=== PATIENT | female | born 1950 | race Caucasian/White ===

== ENCOUNTER 2019-03-08 12:22 | Day surgery (SDC) | payer MEDICARE, SELFPAY ==
--- NOTE | 2019-03-07 19:43 | HP.PCM_ITS ---
History and Physical Date of Admission: 03/08/19 Ana Hope 1950 ? ? REFERRING PHYSICIAN: Sera Jolley (Cracking Unit Operator) ? CHIEF COMPLAINT: New findings of right breast DCIS ? HPI: The patient is a 68 year old female presents with abnormal right breast ultrasound and mammograms. Denies palpable breast masses. Denies nipple discharge. Denies previous breast biopsies. Denies breast pain. Mother had breast cancer in her '80s, no ovarian cancer known in family. US 02/10/19 There is 0.6 cm x 0.4 cm x 0.4 cm oval mass with a circumscribed margin in the right breast at 10 o'clock anterior depth 2 cm from the nipple. ?Anterior depth. It is suspicious for malignancy. An ultrasound guided biopsy is recommended. US needle core breast biopsy 02/12/19 - Pathology - Right breast, biopsy - Ductal carcinoma in situ, low grade, solid and cribriform types ? ? PAST MEDICAL HISTORY ? Arthritis ? ? Christopher's cyst of knee 02/2012? left, behind ? Diabetes (HCC) ? ? Frozen shoulder syndrome ? ? Obesity, unspecified ? ? Pelvic kidney ? right ? Prolapse of female pelvic organs ? ? Unspecified sleep apnea ? ? Vitreous detachment of both eyes ? ? PAST SURGICAL HISTORY ? DELIVERY ONLY ? ? ? PAST SURGICAL HISTORY OF ? hernia surgery ? REMOVE TONSILS/ADENOIDS,<14 Y/O ? ? ? VAGINAL HYSTERECTOMY ? 2014? [facility], RSO, uterosacral VVS, rectocele repair ? W $ FINGER JOINT IMP ? 08/15/11? scraping of bone on left 5th digit ? ? Current Outpatient Medications: metFORMIN ER (GLUCOPHAGE XR) 500 mg 24 hr tablet Take 500 mg by mouth once daily. ? ? ALLERGIES: Dog And Cat Hair [Other]; Dust; Seasonal Allergies ? 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 FAMILY HISTORY ? Breast Cancer Mother ?? HTN ? No Ocular Disease No Family History ? ? ? REVIEW OF SYSTEMS: General: The patient denies fatigue, denies weight loss, denies weight gain, denies feeling hot, and denies feelings of cold. Eyes: The patient denies glaucoma, denies eye injury/surgery, wears glasses or contacts. Ear/Nose/Throat: The patient notes allergies, denies hayfever, denies ear infections, and denies bloody noses. Cardiovascular: The patient denies chest pain, denies heart disease, denies high blood pressure,denies cardiac stent, denies prior heart attack, de nies irregular heart beat, denies high cholesterol, denies poor circulation, denies heart failure, other cardiac issues, denies claudication, denies cold feet, denies peripheral arterial stent. Respiratory: The patient denies tuberculosis, denies pneumonia, denies frequent cough, denies pulmonary embolism, denies shortness of breath, and denies coughing up blood. Gastrointestinal: The patient denies difficulty swallowing, denies acid reflux, denies ulcers, denies vomiting, denies jaundice/hepatitis, denies gallbladder problems, denies black or tarry stools, denies hemorrhoids, denies bleeding from rectum, denies diverticulitis, denies constipation, denies diarrhea, denies loss of stool control, and denies hernias. Kidney/Bladder: The patient denies kidney stones, denies urine infections, and denies bloody urine. Skin: The patient denies a history of skin cancer, denies bleeding/changing moles, and denies a history of skin rash. Neurologic: has tinnitis, denies a history of epilepsy/convulsions, denies headaches, denies head/spinal injuries, and denies stroke/TIA. Psychiatric: The patient denies psychiatric medications, denies depression, and denies voices, denies substance abuse. Endocrine: The patient denies thyroid disorders, notes diabetes, and denies hormonal problems. Hematologic: The patient denies a history of bruising, denies bleeding, and denies anemia, denies blood clots. Infections: The patient denies a history of measles and mumps, denies rheumatic fever, and denies sexually transmitted diseases. Musculoskeletal: has joint pain - arthritis of hands, has knee pain, has Christopher's cyst of left knee, denies back problems, denies sciatica, denies gout. Obstetrical: menarche onset at age 14, , first at age 33, breast feeding about 3 year, BCP use for < 1 y, last menstrual period 05/03/2010, ? PHYSICAL EXAMINATION: General: The patient is 68 year old female, well nourished, well hydrated in no acute distress. The patient is oriented to time, place, and person. VITALS: Blood pressure 136/62, pulse 70, resp. rate 18, weight 94.8 kg (209 lb), SpO2 97 %. Body mass index is 32.25 kg/m?. Head ? Normocephalic. EOM intact with sclera clear and no icterus noted. Mouth with mucus membranes moist. Neck - supple with no jugular venous distention noted. Trachea is midline. No carotid bruits noted. No thyroid enlargement or thyroid nodules detected. No masses noted. Chest/breast ?healing biopsy site of right breast - ecchymoses present Lungs ? clear to auscultation. Normal breath sounds. No rales/rhonchi/wheezing noted. No labored breathing noted, such as retractions. No cough heard. Heart ? normal S1 and S2 auscultated. No rubs/clicks/murmurs noted. Regular rate. Abdomen ? soft and benign. Normal bowel sounds. No abdominal bruits noted. No distention noted. Extremities ? no calf tenderness noted. No pitting edema noted. Skin ? normal skin integrity. Lymph ? no cervical adenopathy detected, no supraclavicular adenopathy detected, no axillary adenopathy detected Neurological ? gait normal, no focal deficits noted. Psych ? calm and appropriate RADIOLOGIC STUDIES: As Noted ? ? IMPRESSION: right breast DCIS ? PLAN: I have discussed the above with the patient. I have discussed options of surgical treatment - mastectomy versus breast lumpectomy followed by radiation therapy. I have described both procedures. The patient prefers lumpectomy. I have explained that this will require wire localization. I have counseled the patient as to the risks of the procedure, including but not limited to: infection, bleeding, injury to any blood vessels/nerves, scar tissue, missing the lesion, reexcision for positive margins, wound infections, complications of anesthesia, etc. ? the patient understands. The patient wishes to proceed. I have answered all questions to the patient?s satisfaction and the patient has no further questions. .
--- NOTE | 2019-03-08 | BREAST_PTH ---
PATIENT: OMAR EVANS [place] [facility] [place][id number] AGE/SX: 68/F ROOM: RE03/08/[address]: Dr. Marbella Fox MD : 1950 BED: DIS: 03/08/2019 SPEC #: [id number] RECD: 03/08/19 16:05 STATUS: JOE REElise #: [id number] KHARI: 03/08/19 00:[address]: Marbella Fox DEPT: SURGICAL PATHOLOGY RECD BY: Chanda Torres ENTERED: 03/09/19 07:36 SP TYPE: BREAST OTHR DR: Dr. Mathew Tuttle MD Tissues: A - Right breast, NOS B - Right breast, NOS Procedures: Surgery Specimen Level IV Surgery Specimen Level V HEADER OPERATION: Right breast lumpectomy via wire localization PRE-OP DIAGNOSIS: Ductal carcinoma in situ TISSUE SUBMITTED: A - Right breast tissue, two short sutures - posterior margin, one short suture - superior, one long suture - lateral, B - Additional right breast tissue MICROSCOPIC DIAGNOSIS A. Right breast, lumpectomy via wire needle localization: Ductal carcinoma in situ. Intraductal hyperplasia with focal atypia. Intraductal papillomatosis with atypia. Fibrocystic changes. See cancer summary below. B. Additional right breast tissue: Intraductal papilloma with focal atypia. SJ:marty 03/10/19 DUCTAL CARCINOMA IN SITU SUMMARY: Specimen - partial breast Procedure - excision with wire-guided localization. Lymph node sampling - no lymph node present. Specimen integrity - multiple designated specimens, main excision and additional breast tissue. Specimen size: lumpectomy specimen - 9 x 4 x 2 cm and additional breast tissue - 2.5 x 1.5 x 0.6 cm Tumor site - not specified Size (extent) of DCIS - 0.5 x 0.3 cm Number of blocks with DCIS - 2 Number of blocks examined - 20 (lumpectomy specimen and additional breast tissue) Histologic type - ductal carcinoma in situ Architectural patterns - cribriform and solid Nuclear grade - Grade 1 (low) Necrosis - present, focal Margins: Margins uninvolved by DCIS. The tumor is 0.5 cm away from the anterior and superior margins. Treatment effect: Response to presurgical (neoadjuvant) - not applicable. No known presurgical therapy. Lymph nodes: not present Additional Pathologic Findings - fibrocystic changes and intraductal hyperplasia with focal atypia. - Intraductal papillomatosis with atypia. - fibrocystic changes. Ancillary Studies from previous specimen ([id number] from [facility]): ER - 99%, strong [place] - see comment. Her2 haydee ([facility]) - see comment. Clinical history - Please make reference to previous specimen ([id number] from [facility]) with diagnosis of ductal carcinoma in situ, low grade, solid and cribriform types). Pathologic Staging: pTis(DCIS) pNx Mx The above summary is in compliance with College of [place] Path[employer] (CAP) Cancer Protocols Checklist and [place] Joint Committee on Cancer (AJCC), Staging Manual, 8th Ed. COMMENT A. If additional hormonal studies needed in this specimen ([place] & Her2-haydee), please notify the laboratory. Case has been reviewed in consultation with Dr. Benites who concurs with the above diagnosis. IDC:AM MICROSCOPIC DESCRIPTION Slides are reviewed. GROSS DESCRIPTION A - Received fresh for intraoperative consultation labeled with the patient's name is a specimen designated right breast tissue. The specimen consists of a piece of fibroadipose tissue with needle localization measuring 9 x 4 x 2 cm. The specimen is oriented as follows: two short sutures - posterior margin, one short suture - superior margin, one long suture - lateral margin. The specimen is inked as follows: anterior - yellow, posterior - black, superior - blue, inferior - green, medial - red and lateral - orange. Serial sections reveal a small biopsy cavity. No mass lesion is identified. This biopsy cavity is close to the posterior margin. Sections of the rest of the specimen reveal norwood-yellow adipose cut surfaces mixed with norwood-white fibrous area. The information of the biopsy cavity of no mass lesion is conveyed to the surgeon intraoperative. The specimen is serially sectioned and submitted entirely from medial to lateral margin in 18 cassettes. B - Received in fixative is one container labeled with the patient's name and designated additional right breast tissue. The specimen consists of a piece of norwood-yellow fibroadipose tissue measuring 2.5 x 1.5 x 0.6 cm. The specimen is submitted entirely in two cassettes. / TO:marty 03/09/19 TC:0 CPT: 99506, 44051, 05935
--- NOTE | 2019-03-08 12:30 | BI_ITS ---
SURGICAL BREAST SPECIMEN RADIOGRAPH CLINICAL: Document presence of calcifications in biopsy specimen. FINDINGS: Specimen shows presence of calcifications. Electronically Signed: Eliseo Ballesteros, at 7:56 EDT , Service support , BI/Breast Biopsy Specimen
[2019-03-08 13:04] VITALS: BP 122/73; PULSE 82; RESP 16; TEMP 36.9; O2SAT 97; BMI 34.2
[2019-03-08 13:20] LABS: Bedside Glucose 128 mg/dL (70-110)
--- NOTE | 2019-03-08 14:58 | DCINST_ITS ---
Discharge Diet: No Restrictions Discharge Activity: Return to Normal Activity, May not drive while taking narcotic pain medications. Call your doctor if your incision/area has: Continuous Slow Oozing, Foul Smelling Discharge Call your doctor if you observe: Fever of 101 or Higher Additional Dressing/Incision Instructions:: Leave dressings in place. May get wet in shower. Do not soak - no tub baths/swimming. Wear supportive bra during the day Allergies/Adverse Reactions: Allergies No Known Allergies Allergy (Verified 03/08/19 13:03) Medications to take at Discharge Metformin HCl [Glucophage] 500 mg PO BID 03/02/19 Hydrocodone Bitart/Apap 5-325 [Radisson 5MG-325MG] 1 tab PO Q8H PRN PRN 5 Days #15 tab 03/08/19 The following prescriptions were given: Hydrocodone Bitart/Apap 5-325 [Radisson 5MG-325MG] 1 tab PO Q8H PRN PRN 5 Days #15 tab PRN Reason: Pain Prescription Printed Primary Care Physician: Mathew Tuttle MD [Primary Care Provider] - Please Follow Up With: Marbella Fox MD - call When: to be seen in 7-10 days, please call for date and time, thank you
[2019-03-08] MEDS: Cefazolin 2 GM in 0.9% Normal Saline 100 ML IV (14:59)
--- NOTE | 2019-03-08 15:02 | OP.PCM_ITS ---
Report of Operation Date of Procedure: 03/08/19 Pre-Operative Diagnosis: right breast ductal carcinoma in situ Post-Operative Diagnosis: same Surgery/Procedure Performed:: right breast lumpectomy via wire localization Description of Surgical Findings:: right breast lumpectomy Type of Anesthesia:: General Anesthesiologist: Lyndsey Benitez Specimen's removed: right breast tissue Estimated Blood Loss (mL): < 10 ml Fluids Replaced: 1000 ml RL Description of Procedure: After informed consent was given, the patient was brought into the Breast Stereotactic Radiology suite. Appropriate time out protocol was followed. She was then placed in the prone position on the [place] stereotactic table. The patient?s right breast was placed in the opening at the head of the table. A special education inclusion teacher compression mammogram was then obtained in the lateral view. The marker clip that was previously placed was identified. Stereo pictures of the lesion were then taken for XYZ coordinates. The Kopans needle was then positioned where it would be entering into the patient?s breast. The skin at this site was then cleansed with a surgical skin preparation. The skin and subcutaneous tissues at this site were then infiltrated with 1% xylocaine. The Kopans needle was then positioned into the patient?s breast at the proper coordinates of depth. A special education inclusion teacher film was obtained which revealed the wire in proper position. The patient was then placed in the supine position and the wire was taped into place. A unilateral mammogram in the CC and MLO view were then taken for use in the OR. The patient tolerated this portion of the procedure well and was brought to the AC awaiting surgery in the OR. The patient was then brought to the Operating Room. Appropriate time out protocol was followed. She was then placed on the operating table in the supine position. A wire had already been placed in the stereotactic biopsy room in the radiology department as described above. The right breast with the wire in placed was then prepped with a sterile surgical skin preparation and sterile surgical drapes were placed. The skin and subcutaneous tissues at the site of the breast lesion was then infiltrated with 1% xylocaine with epinephrine. A lateral transverse skin incision was made and then extended at the areolar border in the lower outer quadrant with a 15 blade scalpel and carried down through to the subcutaneous tissues. Hemostasis was controlled with electrocautery. The wire was then palpated out and brought into the wound from outside. The breast tissue surrounding the wire was then carefully palpated out and from the surrounding tissues using electrocautery. The breast tissue, once from the breast, was then forwarded to the radiology department, where a specimen mammogram revealed that the marker was not noted in the specimen. The breast tissue was then forwarded to pathology for analysis. Pathology did show a biopsy cavity, no mass noted. It also revealed that the closest margin was posterior. Additional posterior tissue was obtained. Attempt to localize the marker clip with an xray was obtained. No marker clip was identified. The wound cavity was carefully examined. No further suspicious tissue was palpated or visualized. Hemostasis was carefully controlled with electrocautery. The subdermal tissues were then approximated with vicryl suture. The incision was then reapproximated close using running monocryl suture. Cavilon and steristrips were then placed to reinforce the skin closure. A sterile dressing was then applied. The patient was then brought to the Recovery Room in stable condition. - Complications none noted - Admit VTE Documentation VTE Present on Admission: Yes VTE Mechan Device Prophylaxis: SCD's
--- NOTE | 2019-03-08 16:10 | RAD_ITS ---
STUDY: X-RAY CHEST REASON FOR EXAM: Female, 68 years old. mammography clip TECHNIQUE: Single spot view of the right chest COMPARISON: None. FINDINGS: There are retractors and surgical hemostats overlying the right side chest. The breast tissue is to the lateral aspect of the chest. A metallic clip is not visualized. RAD/Chest 1 View (Portable) IMPRESSION: Metallic clip is not visualized. The location of the clip is known, could consider intraoperative ultrasound Electronically Signed: Winsome Treadwell MD at 17:35 EDT Tel , Service support ,
[2019-03-08] MEDS: Bupiv/Epi 0.25% 30 ML Vial (16:27)
[2019-03-08 16:48] VITALS: BP 122/73; BP 143/84; PULSE 88; RESP 16; TEMP 36.7; O2SAT 93
[2019-03-08 17:00] VITALS: BP 122/73; BP 135/73; PULSE 88; RESP 16; O2SAT 93
[2019-03-08 17:11] LABS: Bedside Glucose 120 mg/dL (70-110)
[2019-03-08 17:15] VITALS: BP 122/73; BP 134/65; PULSE 71; RESP 16; O2SAT 97
[2019-03-08 17:33] VITALS: BP 122/73; BP 132/79; PULSE 72; RESP 16; TEMP 36.3; O2SAT 93
[2019-03-08 17:58] VITALS: BP 122/73; BP 135/79; PULSE 77; RESP 16; TEMP 36.4; O2SAT 94
== END 2019-03-08 18:00 | disposition home or self-care (01) ==
LOC: SDC 12:25 → AC 12:31
PROVIDERS: Family Provider Family Medicine; PCP Family Medicine; Referring Provider Surgery; Visit Provider Surgery
PROC: (CPT 19301; principal; 2019-03-08 15:00)
DX: D05.11 Intraductal carcinoma in situ of right breast (principal); E11.9 Type 2 diabetes mellitus without complications; M19.042 Primary osteoarthritis, left hand; M19.041 Primary osteoarthritis, right hand; G47.30 Sleep apnea, unspecified; E66.9 Obesity, unspecified; Z68.32 Body mass index [BMI] 32.0-32.9, adult; Z79.84 Long term (current) use of oral hypoglycemic drugs; Z78.0 Asymptomatic menopausal state; Z80.3 Family history of malignant neoplasm of breast
CPT/HCPCS: 19301; 19281; 71045; 76098; 82962; 88305; 88307; J7050; J7120; J2405

== ENCOUNTER 2020-04-13 09:00 | Outpatient (RCR) | payer MEDICARE, SELFPAY | END 2020-04-24 23:59 | LOC: DC 09:00 | PROVIDERS: PCP Family Medicine; Visit Provider Family Medicine | DX: Z71.3 Dietary counseling and surveillance (principal); E11.9 Type 2 diabetes mellitus without complications | CPT/HCPCS: 97802; G0108 ==

== ENCOUNTER 2020-04-27 09:34 | Outpatient (RCR) | payer MEDICARE, SELFPAY | END 2020-04-27 16:55 | disposition home or self-care (01) | LOC: DC 09:34 | PROVIDERS: PCP Family Medicine; Visit Provider Family Medicine | DX: Z71.3 Dietary counseling and surveillance (principal); E11.9 Type 2 diabetes mellitus without complications | CPT/HCPCS: 97803 ==

== ENCOUNTER → 2020-05-15 17:47 | Outpatient (CLI) | payer MEDICARE, SELFPAY | PROVIDERS: PCP Family Medicine; Referring Provider Dermatology; Visit Provider Dermatology | DX: L02.511 Cutaneous abscess of right hand (principal); L02.416 Cutaneous abscess of left lower limb; L02.211 Cutaneous abscess of abdominal wall; L57.0 Actinic keratosis | CPT/HCPCS: 87070; 87077; 87186; 87205 ==

== ENCOUNTER 2020-08-23 21:39 | Emergency (ER) | payer MEDICARE, SELFPAY ==
[2020-08-23 21:39] VITALS: BP 149/73; PULSE 96; RESP 16; TEMP 35.8; O2SAT 96; BMI 31.5
--- NOTE | 2020-08-23 21:48 | ED.VIS.GEN ---
History of Present Illness Chief Complaint: Lower Extremity Injury Detail of Chief Complaint: Atraumatic left calf pain and swelling Informant: Patient Onset: Days - 3 to 4 days ago Context: Sudden Onset Timing: Continuous Quality: Pain and redness Location: Left calf Current Severity: Mild Maximum Severity: Moderate Worsened by: Ambulating and pressure Relieved by: Nothing Associated Symptoms: No associated symptoms - Past Medical History (1) History of type 2 diabetes mellitus Status: Acute Past Medical History - Allergies and Home Meds Allergies/Adverse Reactions: Allergies No Known Allergies Allergy (Verified 08/23/20 21:39) Primary Care Physician: Mathew Tuttle MD [Primary Care Provider] - Prior records reviewed: Yes - Diabetes Surgical History: noncontributory - Biopsy left breast 2019 Lives: With Family Smoking Status: Never smoker Alcohol: None Drugs: None Review of Systems General: Denies: Chills, Fever, Malaise, Subjective Cardiovascular: Denies: Chest pain - She denies pleuritic pain or any type of pain., Palpitations, Heart racing Respiratory: Reports: Cough - Cough started July 27., Sputum. Denies: Dyspnea, Dyspnea on exertion, Orthopnea, Paroxysmal nocturnal dyspnea Gastrointestinal: Denies: Abdominal pain, Nausea, Vomiting Musculoskeletal: Reports: Swelling, Extremity Pain. Denies: Myalgias, Arthralgias Skin: Reports: Rash. Denies: Wounds Neurological: Denies: Weakness, Parasthesia Endocrine: Denies: Polyuria, Polydipsia Hematologic: Denies: Easy bruising, Easy bleeding Physical Exam Vital Signs/Narrative: Vital Signs Temp Pulse Resp BP Pulse Ox 08/23/20 21:39 96.4 F L 96 16 149/73 H 96 Inital Vital Signs reviewed: Yes General: Well nourished, Well developed Head: Normocephalic, Atraumatic Eyes: Perrl, EOMI. Negative for: Pale conjunctiva, Scleral icterus Cardiovascular: Regular rate, Regular rhythm Respiratory: No distress Extremities: No edema, Tenderness, Calf Tenderness - There is swelling and tenderness of the calf. Question leg vein distention. No palpable cords. There is a difference in size right greater than left.. Negative for: Nontender Skin: Normal color, No Trauma, Rash - Erythema calf. Negative for: Cyanosis, Diaphoresis, Jaundice Neurological: Alert, Oriented x3, Cranial nerves II-XII grossly intact, Normal Strength, Normal Sensation Psychological: - - Flat affect Diagnostic/Tx/Re-eval Laboratory Results 08/23/20 21:52 Sodium 138 Potassium 4.1 Chloride 105 Carbon Dioxide 28.0 Anion Gap 5 BUN 19 H Creatinine 1.10 H Estim Creat Clear Calc 49.38 Est GFR (MDRD) Af Amer 64 Est GFR (MDRD) Non-Af 53 L BUN/Creatinine Ratio 17.3 Glucose 196 H Calcium 8.9 Lead sugar is elevated. She does have history of type 2 diabetes. GFR is 53. We will not need to adjust Eliquis dose. She was discussed the risk benefits Lovenox and Coumadin versus Xarelto versus Eliquis. After she was informed the risk benefits of each option and restrictions she chose Eliquis. - Medical Decision Making Patient does have a Christopher's cyst on exam. Venous duplex of the leg was obtained to assess for DVT versus other cause. Because patient is 70 years of age BMP was obtained to assess renal function in the event she has a clot requiring anticoagulation. Prior records indicates she has not had blood work past 12 months. ED Disposition - Plan for ED Patient: Disposition: Home or Assisted Living Diagnosis: Deep vein thrombosis (DVT) of popliteal vein of left lower extremity Instructions: DVT/PE Discharge instruction sheet Prescriptions: Apixaban [Eliquis] 5 mg PO BID #74 tab Prescription Printed Referrals: Mathew Tuttle MD [Primary Care Provider] - 1-2 Weeks
--- NOTE | 2020-08-23 21:49 | US_ITS ---
We are attempting to reach an attending provider to discuss findings. An addendum with communication details will be sent when the communication is complete. HISTORY: LT POSTERIOR CALF PAIN EXAMINATION: US Venous Duplex LE Unilat / Limited TECHNIQUE: Marie scale, pulse wave, and color flow Doppler imaging was performed of the lower extremity venous system. The left greater saphenous, common femoral, femoral, and popliteal veins were interrogated. COMPARISON: None 13 images and 14 cine clips FINDINGS: Expansile noncompressible deep venous thrombosis is present with in the left popliteal vein. Some left lesser saphenous venous thrombus is also present. Contralateral flow is demonstrated within the right common femoral vein. Flow is normal within the right common femoral, greater saphenous, profunda femoris, and left femoral vein. US/Venous Duplex Imag/Limited/Uni IMPRESSION: Expansile incompletely compressible thrombus within the left popliteal vein and left lesser saphenous vein in the midcalf. at 2303 Reported and signed by: Patricio Vick MD Electronically Signed: Patricio Vick MD at 23:02 EST Tel , Service support ,
[2020-08-23 22:18] LABS: Anion Gap 5 (5-15); BUN 19 mg/dL (7-18); BUN/Creat Ratio 17.3 RATIO (10-20); Calcium,Total 8.9 mg/dL (8.5-10.1); Chloride 105 mmol/L (98-107); EST Glomerular Filtration Rate 53 mL/min (>60); Est Glom Filt Rate - Afr Amer 64 mL/min (>60); Estimated Creatinine Clearance 49.38 ml/min; Glucose 196 mg/dL (74-106); Potassium 4.1 mmol/L (3.5-5.1); Sodium Level 138 mmol/L (136-145)
[2020-08-23] MEDS: APIXABAN 5 MG TABLET 10 MG PO (22:40)
[2020-08-23 22:52] VITALS: PULSE 90; RESP 18; O2SAT 95
== END 2020-08-23 23:24 | disposition home or self-care (01) ==
PROVIDERS: Emergency Provider Emergency Medicine; PCP Family Medicine
DX: I82.432 Acute embolism and thrombosis of left popliteal vein (principal); E11.9 Type 2 diabetes mellitus without complications; M71.20 Synovial cyst of popliteal space [Baker], unspecified knee
CPT/HCPCS: 80048; 93971; 99283

== ENCOUNTER 2021-01-26 20:20 | Inpatient (IN) | payer MEDICARE, SELFPAY ==
[2021-01-26] VITALS (7 sets, daily range): BP systolic 150–174; BP diastolic 77–95; PULSE 76–96; RESP 15–18; TEMP 36.5–36.8; O2SAT 96–98; BMI 29.5; BMI 32.1
--- NOTE | 2021-01-26 20:32 | EKG12_ITS ---
Test Reason : DYSRHYTHMIA Blood Pressure : / mmHG Vent. Rate : 088 BPM Atrial Rate : 088 BPM P-R Int : 142 ms QRS Dur : 090 ms QT Int : 388 ms P-R-T Axes : 036 -02 078 degrees QTc Int : 469 ms Normal sinus rhythm Nonspecific ST abnormality Abnormal ECG Confirmed by MASSIEL CHOWDHURY, MANOLO ([id number]), sound editor MANNY ACOSTA ([id number]) on 01/30/2021 10:02:40 AM Referred By: Confirmed By:MANOLO RANKIN MD
--- NOTE | 2021-01-26 20:33 | EX.ED.DYSGE1 ---
HPI History of Present Illness Chief Complaint: Rash Detail of Chief Complaint: Concern patient has abscess left lower quadrant/panniculus Informant: patient Onset/Context/Timing Onset: Days Context: Sudden Onset Timing: Continuous Quality: Red erythematous rash with fluctuance Location: Started left lower quadrant area Current Severity: Moderate Maximum Severity: Moderate Worsened by: Progression Relieved by: Nothing Associated Symptoms Associated Symptoms: No history of medical fever, heart murmur or mitral prolapse. Narrative Narrative: Patient is an elderly woman with type 2 diabetes was not checked her blood sugar recently presents with abscess to the left lower quadrant. She has has a history of MRSA. She denies documented fever. She denies shaking chills. She denies weight loss or night sweats. She denies headache, ocular, visual auditory symptoms. Denies cardiac respiratory symptoms. She does report discomfort. She believes the redness got worse because she is allergic to the Band-Aid. There is no drainage at the Band-Aid site. She denies shortness of breath. She denies increased urination. Prior similar symptoms: Yes Recent Illness/Hospitalization: No PFSH PFS Medical History (Updated 01/26/21 @ 22:[address] Francisco Peng MD) Diabetes DVT (deep venous thrombosis) Home Medications metformin 500 mg PO BID 03/02/19 [History Last Taken Unknown] apixaban 5 mg PO BID #74 tab 08/23/20 [Rx Last Taken Unknown] anastrozole 1 mg PO DAILY 01/26/21 [History Last Taken Unknown] Allergy/AdvReac Type Severity Reaction Status Date / Time No Known Allergies Allergy Verified 01/26/21 20:23 Social History (Updated 01/26/21 @ 20:[address] Francisco Peng MD) household members: none Smoking Status: Never smoker alcohol intake: current alcohol intake frequency: holidays/special occasions only substance use type: does not use ROS ROS ED Constitutional Constitutional ED: Denies chills, fever(s), subjective or sweats Eyes Eyes: Denies blurry vision, change in vision or diplopia ENT ENT ED: Denies ear pain, rhinorrhea or sore throat Cardiovascular Cardiovascular: Denies chest pain or palpitations Respiratory/Chest Respiratory/Chest: Denies cough, dyspnea or dyspnea on exertion Gastrointestinal Gastrointestinal: Reports abdominal pain; Denies diarrhea, nausea or vomiting Genitourinary Genitourinary ED: Denies dysuria, hematuria or urinary frequency Musculoskeletal Musculoskeletal: Denies arthralgias, myalgias or neck pain Integumentary Reports abscess and rash Neurologic Neurologic: Reports weakness; Denies headache(s) Endocrine Endocrinology: Denies polydipsia, polyphagia or polyuria EXAM Physical Exam Const Vital Signs: 01/26/21 20:21 01/26/21 20:44 01/26/21 20:46 Temperature 97.8 F 98.2 F Temperature Source Temporal Oral Pulse Rate 96 Respiratory Rate 15 Blood Pressure 171/95 H Blood Pressure Mean 120 Pulse Ox 96 Oxygen Delivery Method Room Air Room Air 01/26/21 21:12 Temperature 98.2 F Temperature Source Oral Pulse Rate 81 Respiratory Rate 16 Blood Pressure 174/81 H Blood Pressure Mean 112 Pulse Ox 98 Oxygen Delivery Method Room Air Positive well nourished, well developed and obese General Appearance ED: well developed Nutritional Appearance: obese HEENT Reports TM's clear and dry mucous membranes HEENT Narrative: Nares patent. Posterior pharynx unremarkable. Ears normal. Tympanic Membrane ED: Yes TM's clear Mouth ED: Yes dry mucous membranes Mouth: dry mucous membranes Eyes PERRL and EOMs intact bilaterally General Eye ED: Negative for pale conjunctiva or scleral icterus Neck supple Resp normal respiratory effort and clear to auscultation bilaterally Cardio regular rate, regular rhythm, S1 normal heart sound, S2 normal heart sound and no murmurs GI GI Narrative: Patient has an abscess involving the panniculus on the left side. There is fluctuance. There is erythema, warmth induration. There is a large area that is 25 to 30 cm in size that is cellulitic. There is no inguinal lymphadenopathy. Back/Spine no CVA tenderness Thoracic Spine / Upper Back: Negative for thoracic spinal tenderness or paraspinal muscle tenderness Extremity normal to inspection General Extremety ED: Negative for edema or tenderness General Extremity: Negative for edema Neuro oriented x3, CN's II-XII intact bilaterally and no sensory deficits noted Sensorium / Orientation: alert Motor Exam: strength 5/5 throughout Psych mental status grossly normal Skin Skin Narrative: Abscess cellulitis lower quadrants of the abdomen Rashes: rashes noted MDM MDM MDM Narrative Medical decision making narrative: Patient has a large area of cellulitis with abscess. Since she is a diabetic and and on anticoagulant for recent DVT will initiate sepsis work-up. Patient will be consented for I&D. Will anesthetized by local infiltration. Blunt dissection will be undertaken carefully and will instill wick to facilitate drainage. At this point there is no crepitus or subcutaneous air to suggest necrotizing fasciitis. Lab Data Attestation: I reviewed the patient's lab results. Labs: Laboratory Results - last 24 hr 01/26/21 01/26/21 01/26/21 20:55 20:55 20:55 WBC 7.6 RBC 4.78 Hgb 13.8 Hct 41.7 MCV 87.2 MCH 28.9 MCHC 33.1 RDW Std Deviation 41.1 RDW Coeff of Darell 13.0 Plt Count 194 MPV 10.6 Immature Gran % (Auto) 0.300 Neut % (Auto) 63.5 Lymph % (Auto) 23.0 [place] % (Auto) 10.6 H Eos % (Auto) 2.1 Baso % (Auto) 0.5 Absolute Neuts (auto) 4.9 Absolute Lymphs (auto) 1.76 Nucleated RBC % 0 PT 14.5 INR 1.2 APTT 31.6 Sodium 139 Potassium 3.7 Chloride 104 Carbon Dioxide 29.0 Anion Gap 6 BUN 18 Creatinine 0.90 Estim Creat Clear Calc 62.52 Est GFR (MDRD) Af Amer 80 Est GFR (MDRD) Non-Af 67 BUN/Creatinine Ratio 20.1 H Glucose 264 H Lactic Acid Calcium 9.1 Total Bilirubin 0.40 AST 23 ALT 37 Alkaline Phosphatase 86 Total Protein 7.0 Albumin 3.4 Globulin 3.6 Albumin/Globulin Ratio 0.9 01/26/21 20:55 WBC RBC Hgb Hct MCV MCH MCHC RDW Std Deviation RDW Coeff of Darell Plt Count MPV Immature Gran % (Auto) Neut % (Auto) Lymph % (Auto) [place] % (Auto) Eos % (Auto) Baso % (Auto) Absolute Neuts (auto) Absolute Lymphs (auto) Nucleated RBC % PT INR APTT Sodium Potassium Chloride Carbon Dioxide Anion Gap BUN Creatinine Estim Creat Clear Calc Est GFR (MDRD) Af Amer Est GFR (MDRD) Non-Af BUN/Creatinine Ratio Glucose Lactic Acid 3.2 H* Calcium Total Bilirubin AST ALT Alkaline Phosphatase Total Protein Albumin Globulin Albumin/Globulin Ratio Patient only has 1 SIRS criteria. Lactate is elevated 3.2. This could be due to Metformin. This also could be due to significant infection due to abdominal wall abscess and cellulitis. EKG Initial EKG: Attestation: I personally reviewed and interpreted this EKG as follows: Interpretation: Sinus Rhythm (Sinus rhythm with a ventricular rate of 88. There is no ossific ST-T wave changes noted. FL interval is 142 ms. Cures duration 90 ms. QT duration 388 ms. [place] is normal.) Procedures Other Procedures Procedure(s): Patient was consented for I&D. She was explained the biggest concern is bleeding because she is on an anticoagulant. She states I have drained prior abscess and she understood. Patient was prepped draped sterile manner. The area was anesthetized with 1% lidocaine by local infiltration field block. Incision was made with 10 blade. A 2 cm incision was made. There was a small cavity. There is approximately half cc of what appeared to be purulent material. There is also brown bloody material noted. There is a significant cavity. The cavity was irrigated. A wick was placed to keep the site open. Discharge Plan Dx/Rx/DC Orders Clinical Impression: Cellulitis and abscess of other specified site, Acidosis, lactic, Type 2 diabetes mellitus with hyperglycemia Disposition Disposition: Acute Care [facility]
[2021-01-26 21:02] LABS: Absolute Lymphocyte Count 1.76 X10^3/uL (0.83-4.51); Absolute Neutrophil Count 4.9 X10^3/uL (2.0-7.7); Basophil# 0.04 X10^3/uL; Basophil% 0.5 % (0-1); Eosinophil# 0.16 X10^3/uL; Eosinophils% 2.1 % (0-5); Hematocrit 41.7 % (37-47); Hemoglobin 13.8 g/dL (12.0-15.0); Lymphocyte # 1.76 X10^3/ul (0.83-4.51); Mean Corp Hgb Conc 33.1 g/dL (32-36); Mean Corpuscular Hgb 28.9 pg (27.0-32.0); Mean Corpuscular Volume 87.2 fL (81-99); Mean Platelet Vol. 10.6 fl (6.2-12.0); Monocyte# 0.81 X10^3/uL; Monocyte% 10.6 % (0-10); NRBC Flagged by Analyzer 0 % (0-5); Neutrophil # 4.85 X10^3/uL (2.7-7.7); Neutrophil % 63.5 % (47-70); Platelet Count 194 K/mm3 (150-450); RBC Distribution Width SD 41.1 fl (35.1-43.9); Red Blood Count 4.78 M/mm3 (4.2-5.4); White Blood Count 7.6 K/mm3 (4.4-11.0)
[2021-01-26 21:25] LABS: International Normalized Ratio 1.2; Prothrombin Time (Protime)PT. 14.5 SECONDS (11.7-14.9)
[2021-01-26 21:26] LABS: Partial Thromboplast Time 31.6 Seconds (24.1-36.2)
[2021-01-26 21:27] LABS: ALB/GLOB Ratio 0.9 RATIO (0.9-2.4); AST(SGOT) 23 U/L (15-37); Alanine Aminotransfer ALT/SGPT 37 U/L (13-56); Albumin, Serum 3.4 g/dL (3.2-5.0); Alkaline Phosphatase 86 U/L (45-117); Anion Gap 6 (5-15); BUN 18 mg/dL (7-18); BUN/Creat Ratio 20.1 RATIO (10-20); Calcium,Total 9.1 mg/dL (8.5-10.1); Chloride 104 mmol/L (98-107); EST Glomerular Filtration Rate 67 mL/min (>60); Est Glom Filt Rate - Afr Amer 80 mL/min (>60); Estimated Creatinine Clearance 62.52 ml/min; Globulin 3.6 g/dL (2.2-4.2); Glucose 264 mg/dL (74-106); Potassium 3.7 mmol/L (3.5-5.1); Sodium Level 139 mmol/L (136-145)
[2021-01-26 21:34] LABS: Lactic Acid 3.2 mmol/L (0.4-1.9)
[2021-01-26] MEDS: Insulin Lispro 100 UNIT/ML INSULN.PEN 10 UNIT SC (22:00)
--- NOTE | 2021-01-26 22:41 | PCM.HP.STD ---
HPI - General General Date of Admission: 01/26/21 Date of Service: 01/26/21 Chief Complaint: abdominal wall redness, pain HPI Narrative OMAR EVANS, is a 70 F who presents to the emergency room at [facility] with complaints of redness over her left lower abdominal wall along with tenderness in the area for the past 3 days. According to the patient's medical record, she has a past history of MRSA infection of her leg in two thousand and twenty. Labs obtained in the emergency room showed a normal white blood cell count, patient was afebrile, patient's lactic acid was elevated at 3.2, glucose was two sixty-four, and the remainder of the patient's chemistry panel was unremarkable. The emergency room physician performed an incision and drainage of the left lower abdominal wall area where there was an area of redness present, he only got a small amount of fluid from the area which was sent for culture. Patient was given IV Zosyn and vancomycin, she will be admitted to [facility] for cellulitis of the left lower abdominal wall, I do not feel the patient's elevated lactic acid is an indicator of sepsis. [facility] Medical History (Updated 01/26/21 @ 22:[address] Francisco Peng MD) Diabetes DVT (deep venous thrombosis) Home Medications metformin 500 mg PO BID 03/02/19 [History Last Taken Unknown] apixaban 5 mg PO BID #74 tab 08/23/20 [Rx Last Taken Unknown] anastrozole 1 mg PO DAILY 01/26/21 [History Last Taken Unknown] Allergy/AdvReac Type Severity Reaction Status Date / Time No Known Allergies Allergy Verified 01/26/21 20:23 Social History (Updated 01/26/21 @ 20:[address] Francisco Peng MD) household members: none Smoking Status: Never smoker alcohol intake: current alcohol intake frequency: holidays/special occasions only substance use type: does not use ROS ROS Narrative Patient complains of redness over her left lower abdominal fold x3 days. Constitutional Constitutional: Denies anorexia, change in weight, chills, fever(s), night sweats or weakness Eyes Eyes: Denies blurry vision, change in vision, discharge from eye(s) or eye pain Cardiovascular Cardiovascular: Denies chest pain, claudication, edema or palpitations Respiratory/Chest Respiratory/Chest: Denies cough, hemoptysis, shortness of breath at rest or shortness of breath with exertion Gastrointestinal Gastrointestinal: Denies abdominal pain, constipation, diarrhea, hematemesis, hematochezia, melena, nausea or vomiting Genitourinary Genitourinary: Denies dysuria, hematuria, urinary frequency, urinary hesitancy, urinary incontinence or urinary urgency Musculoskeletal Musculoskeletal: Denies back pain, joint pain, joint stiffness, joint swelling, myalgias or neck pain Neurologic Neurologic: Denies abnormal gait, abnormal speech, dizziness, focal weakness, headache(s), loss of vision, numbness, other visual disturbances, paresthesias, syncope or tingling Psychiatric Psychiatric: Denies anxiety, cognitive impairment, depression, irritability, mood swings or suicidal ideation Endocrine Endocrinology: Denies change in body appearance, cold intolerance, excessive sweating, heat intolerance, polydipsia or polyuria Hematologic/Lymphatic Hematologic/Lymphatic: Denies none, anemia, easy bleeding, easy bruising or lymphadenopathy Allergic/Immunologic Allergic/Immunologic: Denies rhinitis, urticaria, eczemia or asthma Vital Signs Vital Signs Vital Signs: 01/26/21 20:21 01/26/21 20:44 01/26/21 20:46 Temperature 97.8 F 98.2 F Temperature Source Temporal Oral Pulse Rate 96 Respiratory Rate 15 Blood Pressure 171/95 H Blood Pressure Mean 120 Pulse Ox 96 Oxygen Delivery Method Room Air Room Air 01/26/21 21:12 01/26/21 22:28 01/26/21 22:30 Temperature 98.2 F 97.7 F L 97.7 F L Temperature Source Oral Temporal Temporal Pulse Rate 81 78 Respiratory Rate 16 18 Blood Pressure 174/81 H 174/81 H Blood Pressure Mean 112 112 Pulse Ox 98 Oxygen Delivery Method Room Air 01/26/21 22:31 Temperature 97.7 F L Temperature Source Temporal Pulse Rate 76 Respiratory Rate 18 Blood Pressure 174/81 H Blood Pressure Mean 112 Pulse Ox 98 Oxygen Delivery Method Room Air Weight Weight: 90.718 kg Body Mass Index (BMI) 29.5 Physical Exam Const alert, oriented x3, no apparent distress and healthy appearing General Appearance: cooperative, well kempt and well developed Orientation / Consciousness: awake, oriented to person, oriented to place and oriented to time HEENT normocephalic and moist oral mucous membranes Eyes PERRL, EOMs intact bilaterally and conjunctivae normal Neck nuchal rigidity, supple, no JVD, thyroid normal and no carotid bruits General: trachea midline Resp normal respiratory effort and clear to auscultation bilaterally Auscultation: Negative for rales, rhonchi or wheezes Cardio regular rate, regular rhythm, no murmurs, no rub and no gallops GI normal to inspection, nondistended, normoactive bowel sounds, soft to palpation, non-tender and non-distended Extremity no clubbing, cyanosis or edema Skin no wounds and no jaundice Skin Narrative: There is an extensive area of redness over the patient's left lower and mid abdomen, this area is warm to touch and is tender to palpation General Skin Exam: no breakdown Neuro oriented x3, CN's II-XII intact bilaterally, no focal motor deficits and no sensory deficits noted Sensorium / Orientation: awake and alert Speech: speech normal Psych thought process normal and affect normal Results Lab / Micro Data Result Diagrams: 01/26/21 20:55 01/26/21 20:55 Labs: Laboratory Results - last 24 hr 01/26/21 01/26/21 01/26/21 20:55 20:55 20:55 WBC 7.6 RBC 4.78 Hgb 13.8 Hct 41.7 MCV 87.2 MCH 28.9 MCHC 33.1 RDW Std Deviation 41.1 RDW Coeff of Darell 13.0 Plt Count 194 MPV 10.6 Immature Gran % (Auto) 0.300 Neut % (Auto) 63.5 Lymph % (Auto) 23.0 [place] % (Auto) 10.6 H Eos % (Auto) 2.1 Baso % (Auto) 0.5 Absolute Neuts (auto) 4.9 Absolute Lymphs (auto) 1.76 Nucleated RBC % 0 PT 14.5 INR 1.2 APTT 31.6 Sodium 139 Potassium 3.7 Chloride 104 Carbon Dioxide 29.0 Anion Gap 6 BUN 18 Creatinine 0.90 Estim Creat Clear Calc 62.52 Est GFR (MDRD) Af Amer 80 Est GFR (MDRD) Non-Af 67 BUN/Creatinine Ratio 20.1 H Glucose 264 H Lactic Acid Calcium 9.1 Total Bilirubin 0.40 AST 23 ALT 37 Alkaline Phosphatase 86 Total Protein 7.0 Albumin 3.4 Globulin 3.6 Albumin/Globulin Ratio 0.9 01/26/21 20:55 WBC RBC Hgb Hct MCV MCH MCHC RDW Std Deviation RDW Coeff of Darell Plt Count MPV Immature Gran % (Auto) Neut % (Auto) Lymph % (Auto) [place] % (Auto) Eos % (Auto) Baso % (Auto) Absolute Neuts (auto) Absolute Lymphs (auto) Nucleated RBC % PT INR APTT Sodium Potassium Chloride Carbon Dioxide Anion Gap BUN Creatinine Estim Creat Clear Calc Est GFR (MDRD) Af Amer Est GFR (MDRD) Non-Af BUN/Creatinine Ratio Glucose Lactic Acid 3.2 H* Calcium Total Bilirubin AST ALT Alkaline Phosphatase Total Protein Albumin Globulin Albumin/Globulin Ratio Assessment & Plan Assessment/Plan (1) Cellulitis and abscess of other specified site: PLAN: 1. Cellulitis of the left lower and mid abdomen-suspicious for MRSA cellulitis based on previous MRSA cellulitis of the leg in two thousand and twenty-patient will be admitted to [facility] three, she was placed on IV Zosyn and vancomycin, based on culture results from fluid obtained in the emergency room, these antibiotics may be able to be deescalated. Patient does not appear to be septic at this time #2 lactic acidosis-etiology unclear at this point, again I do not think this is secondary to sepsis, patient's metformin was stopped #3 type 2 diabetes-blood sugars will be monitored sliding scale insulin will be administered Charges/Coding Visit Charges Inpatient E&M: 21596 Init Hosp L3
[2021-01-27] VITALS (7 sets, daily range): BP systolic 134–169; BP diastolic 79–100; PULSE 85–122; RESP 16–18; TEMP 36.9–37.2; O2SAT 95–96
[2021-01-27 00:59] LABS: Reflex Lactate? Y
--- NOTE | 2021-01-27 01:06 | PCM.RX.CS ---
Consult Pharmacy has been consulted to manage selected antiobiotic: Vancomycin Type of Consult: New start Suspected Infection: Skin/Soft tissue Labs: Sodium 139 mmol/L (136-145) 01/26/21 20:55 Potassium 3.7 mmol/L (3.5-5.1) 01/26/21 20:55 Chloride 104 mmol/L (98-107) 01/26/21 20:55 Carbon Dioxide 29.0 mmol/L (21.0-32.0) 01/26/21 20:55 Anion Gap 6 (5-15) 01/26/21 20:55 BUN 18 mg/dL (7-18) 01/26/21 20:55 Creatinine 0.90 mg/dL (0.55-1.02) 01/26/21 20:55 Est GFR (MDRD) Af Amer 80 mL/min (>60) 01/26/21 20:55 Est GFR (MDRD) Non-Af 67 mL/min (>60) 01/26/21 20:55 BUN/Creatinine Ratio 20.1 RATIO (10-20) H 01/26/21 20:55 Glucose 264 mg/dL (74-106) H 01/26/21 20:55 Weight used for dosin.7 kg Estimated Creatinine Clearance: 72.36 Goal Trough: 10-15 mcg/mL Pharmacy Plan for Drug Dosing: Pharmacy Service will continue to monitor and adjust dosing as required. Medications Vancomycin HCl (Vancomycin) 1,000 mg in 200 mls @ 200 mls/hr IV Q12H JERRY Discontinued Medications Vancomycin HCl 2,000 mg/ (Dextrose) 290 mls @ 250 mls/hr IV X1 ONE Stop: 01/26/21 21:42 Last Admin: 01/26/21 23:09 Dose: Infused Documented by: Follow-Up Labs: Trough Vancomycin Labs to be done on [date and time ordered]: 01/28 @ 3855
[2021-01-27 01:41] LABS: Lactic Acid 2.6 mmol/L (0.4-1.9)
[2021-01-27] MEDS: 0.9% Saline Lock 10 ML Syringe IV (05:13)
[2021-01-27] MEDS: Insulin Lispro 100 UNIT/ML INSULN.PEN SC ×4 (06:37→21:23)
[2021-01-27 06:45] LABS: Bedside Glucose 183 mg/dL (70-110)
[2021-01-27 07:52] LABS: Absolute Lymphocyte Count 1.38 X10^3/uL (0.83-4.51); Absolute Neutrophil Count 6.3 X10^3/uL (2.0-7.7); Basophil# 0.02 X10^3/uL; Basophil% 0.2 % (0-1); Eosinophil# 0.15 X10^3/uL; Eosinophils% 1.7 % (0-5); Hematocrit 41.6 % (37-47); Hemoglobin 13.7 g/dL (12.0-15.0); Lymphocyte # 1.38 X10^3/ul (0.83-4.51); Lymphocyte % 15.5 % (19-41); Mean Corp Hgb Conc 32.9 g/dL (32-36); Mean Corpuscular Hgb 28.7 pg (27.0-32.0); Mean Corpuscular Volume 87.2 fL (81-99); Mean Platelet Vol. 10.9 fl (6.2-12.0); Monocyte# 1.01 X10^3/uL; Monocyte% 11.4 % (0-10); NRBC Flagged by Analyzer 0 % (0-5); Neutrophil # 6.28 X10^3/uL (2.7-7.7); Neutrophil % 70.7 % (47-70); Platelet Count 182 K/mm3 (150-450); RBC Distribution Width CV 13.1 % (11.6-14.6); RBC Distribution Width SD 41.9 fl (35.1-43.9); Red Blood Count 4.77 M/mm3 (4.2-5.4); White Blood Count 8.9 K/mm3 (4.4-11.0)
[2021-01-27 08:19] LABS: Anion Gap 7 (5-15); BUN 14 mg/dL (7-18); BUN/Creat Ratio 21.2 RATIO (10-20); Calcium,Total 8.7 mg/dL (8.5-10.1); Chloride 106 mmol/L (98-107); Creatinine, Serum 0.66 mg/dL (0.55-1.02); EST Glomerular Filtration Rate 94 mL/min (>60); Est Glom Filt Rate - Afr Amer 114 mL/min (>60); Estimated Creatinine Clearance 54.32 ml/min; Glucose 159 mg/dL (74-106); Potassium 3.5 mmol/L (3.5-5.1); Sodium Level 140 mmol/L (136-145)
[2021-01-27] MEDS: Rivaroxaban 20 MG Tablet PO (09:43)
[2021-01-27] MEDS: Anastrozole 1 MG TABLET PO (09:43)
[2021-01-27] MEDS: Vancomycin IV 1,000 MG/200 ML BAG 200 MG IV ×2 (10:30→21:20)
--- NOTE | 2021-01-27 11:09 | PN.HOSP_ITS ---
Subjective Subjective Patient seen and examined. She was admitted with a complaint of abdominal wall redness and pain. She has a history of MRSA. She was found to have low abdominal wall cellulitis. She had incision and drainage done in the area in the ED with a small amount of fluid expressed. Objective Data Objective Data Vital Signs: Vital Signs Temp Pulse Resp BP Pulse Ox 99 F 88 18 134/90 H 96 01/27/21 09:42 01/27/21 09:42 01/27/21 09:42 01/27/21 09:42 01/27/21 09:42 Oxygen Delivery Method Room Air Weight: 210 lb 15.718 oz Body Mass Index (BMI) 32.1 Intake & Output: Intake and Output for Last 24 Hours 01/25/21 01/26/21 01/27/21 23:59 23:59 23:59 Intake Total 390 / 390 250 / 250 Output Total 800 / 800 Balance 390 / 390 -550 / -550 Lab / Micro Data Result Diagrams: 01/27/21 07:07 01/27/21 07:07 Labs: Laboratory Results - last 24 hr 01/26/21 01/26/21 01/26/21 20:55 20:55 20:55 WBC 7.6 RBC 4.78 Hgb 13.8 Hct 41.7 MCV 87.2 MCH 28.9 MCHC 33.1 RDW Std Deviation 41.1 RDW Coeff of Darell 13.0 Plt Count 194 MPV 10.6 Immature Gran % (Auto) 0.300 Neut % (Auto) 63.5 Lymph % (Auto) 23.0 [place] % (Auto) 10.6 H Eos % (Auto) 2.1 Baso % (Auto) 0.5 Absolute Neuts (auto) 4.9 Absolute Lymphs (auto) 1.76 Nucleated RBC % 0 PT 14.5 INR 1.2 APTT 31.6 Sodium 139 Potassium 3.7 Chloride 104 Carbon Dioxide 29.0 Anion Gap 6 BUN 18 Creatinine 0.90 Estim Creat Clear Calc 62.52 Est GFR (MDRD) Af Amer 80 Est GFR (MDRD) Non-Af 67 BUN/Creatinine Ratio 20.1 H Glucose 264 H Lactic Acid Calcium 9.1 Total Bilirubin 0.40 AST 23 ALT 37 Alkaline Phosphatase 86 Total Protein 7.0 Albumin 3.4 Globulin 3.6 Albumin/Globulin Ratio 0.9 POC Glucose 01/26/21 01/27/21 01/27/21 20:55 01:05 06:35 WBC RBC Hgb Hct MCV MCH MCHC RDW Std Deviation RDW Coeff of Darell Plt Count MPV Immature Gran % (Auto) Neut % (Auto) Lymph % (Auto) [place] % (Auto) Eos % (Auto) Baso % (Auto) Absolute Neuts (auto) Absolute Lymphs (auto) Nucleated RBC % PT INR APTT Sodium Potassium Chloride Carbon Dioxide Anion Gap BUN Creatinine Estim Creat Clear Calc Est GFR (MDRD) Af Amer Est GFR (MDRD) Non-Af BUN/Creatinine Ratio Glucose Lactic Acid 3.2 H* 2.6 H* Calcium Total Bilirubin AST ALT Alkaline Phosphatase Total Protein Albumin Globulin Albumin/Globulin Ratio POC Glucose 183 H 01/27/21 01/27/21 07:07 07:07 WBC 8.9 RBC 4.77 Hgb 13.7 Hct 41.6 MCV 87.2 MCH 28.7 MCHC 32.9 RDW Std Deviation 41.9 RDW Coeff of Darell 13.1 Plt Count 182 MPV 10.9 Immature Gran % (Auto) 0.500 Neut % (Auto) 70.7 H Lymph % (Auto) 15.5 L [place] % (Auto) 11.4 H Eos % (Auto) 1.7 Baso % (Auto) 0.2 Absolute Neuts (auto) 6.3 Absolute Lymphs (auto) 1.38 Nucleated RBC % 0 PT INR APTT Sodium 140 Potassium 3.5 Chloride 106 Carbon Dioxide 27.0 Anion Gap 7 BUN 14 Creatinine 0.66 Estim Creat Clear Calc 54.32 Est GFR (MDRD) Af Amer 114 Est GFR (MDRD) Non-Af 94 BUN/Creatinine Ratio 21.2 H Glucose 159 H Lactic Acid Calcium 8.7 Total Bilirubin AST ALT Alkaline Phosphatase Total Protein Albumin Globulin Albumin/Globulin Ratio POC Glucose Micro: Microbiology 01/26/21 22:11 Wound Abcess - Abdominal Wound Culture - Preliminary Staphylococcus aureus Physical Exam Const alert, oriented x3 and no apparent distress Exam Limitations: no limitations and altered mental status HEENT head/scalp atraumatic and moist oral mucous membranes Head and Scalp: normocephalic Cardio regular rate, regular rhythm, S1 normal heart sound, S2 normal heart sound and no murmurs GI normal to inspection, nondistended, normoactive bowel sounds, soft to palpation, non-tender and non-distended Extremity normal to inspection, full ROM and no clubbing, cyanosis or edema Peripheral Pulses: Yes pulses 2+ throughout Skin Skin Narrative: erythema and differential warmth over lower abdomen. Dressing over I&D site on lower abdomen. Neuro oriented x3 and moves all extremities Sensorium / Orientation: awake and alert Psych affect normal Assessment & Plan Assessment/Plan (1) Cellulitis and abscess of other specified site: PLAN: #Cellulitis of the abdominal wall * Patient currently on IV vancomycin and Zosyn. We will continue and await cultures. * Blood cultures also pending. * . Tylenol for pain and fever. * #Lactic acidosis: on metformin. She didnt appear to be septic at time of admission. #type 2 diabetes mellitus: ISS. Accuchecks ACHS. 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 DVT prophylaxis: not indicated as she is on xarelto. Charges/Coding Visit Charges Inpatient E&M: 74509 Subs Hosp L2
--- NOTE | 2021-01-27 11:35 | CASEMGMT ---
MEME WILSON assessment: Face to Face with patient for initial transition planning/care coordination assessment. MEME WILSON introduced self and role at [facility], pt voices understanding and consents to assessment. Pt is sitting up on side of bed in no distress. Pt is A/Ox4 and answers all questions appropriately. Pt's daughter is at bedside during assessment. Care providers, pharmacy, and demographics verified. Presentation: Pt c/o 'spot' on left abd x4 days and states has MRSA again Admitting dx: Abd cellulitis PCP: Parag Specialists: frank Boyle Preferred Pharmacy: [facility] Insurance: A[employer]R Prescription Benefit: A[employer]R Living Will/HPOA: Pt states has LW and is aware it's not on file at [facility]. LNOK: Venkat Hope, ; Lina Hope, daughter Living Arrangements: Pt states lives with family in 2 story home and states no concerns at home. Pt states is normally independent with ADL's. Transportation: Pt states drives self and states no transportation concerns. DME/HHC: Pt states has cpap thru [employer] [facility] [employer] but does not use and states no need for any further DME. Pt states no hx of HHC or SNF. Pt states no concerns with going home at time of discharge. Pt is retired. Pt states does not smoke cigarettes or drink ETOH. Pt states no further questions/concerns/needs. CM to follow for any further discharge planning/needs. Advised pt to ask for CM if any further questions/concerns/needs arise, voices understanding. Pt goal: Home Plan[place] MEME WILSON
[2021-01-27 12:05] LABS: Bedside Glucose 257 mg/dL (70-110)
[2021-01-27 17:30] LABS: Bedside Glucose 170 mg/dL (70-110)
[2021-01-27] MEDS: Metoprolol Tartrate 25 MG Tablet PO (18:46)
[2021-01-27 21:30] LABS: Bedside Glucose 302 mg/dL (70-110)
[2021-01-28 02:38] VITALS: BP 127/80; PULSE 82; RESP 16; TEMP 36.7; O2SAT 96
[2021-01-28 06:46] LABS: Bedside Glucose 208 mg/dL (70-110)
[2021-01-28] MEDS: Insulin Lispro 100 UNIT/ML INSULN.PEN SC ×4 (06:50→21:53)
[2021-01-28] MEDS: Rivaroxaban 20 MG Tablet PO (07:52)
[2021-01-28 07:53] VITALS: PULSE 74
[2021-01-28] MEDS: Metoprolol Tartrate 25 MG Tablet PO ×2 (07:53→21:51)
[2021-01-28] MEDS: Anastrozole 1 MG TABLET PO (07:53)
[2021-01-28 08:10] VITALS: BP 136/74; PULSE 74; RESP 16; TEMP 36.8; O2SAT 95
[2021-01-28 09:44] LABS: Absolute Lymphocyte Count 1.46 X10^3/uL (0.83-4.51); Absolute Neutrophil Count 5.9 X10^3/uL (2.0-7.7); Basophil# 0.03 X10^3/uL; Basophil% 0.4 % (0-1); Eosinophil# 0.18 X10^3/uL; Eosinophils% 2.1 % (0-5); Hematocrit 42.6 % (37-47); Hemoglobin 14.3 g/dL (12.0-15.0); Lymphocyte # 1.46 X10^3/ul (0.83-4.51); Lymphocyte % 17.1 % (19-41); Mean Corp Hgb Conc 33.6 g/dL (32-36); Mean Corpuscular Hgb 28.9 pg (27.0-32.0); Mean Corpuscular Volume 86.1 fL (81-99); Mean Platelet Vol. 10.5 fl (6.2-12.0); Monocyte# 0.95 X10^3/uL; Monocyte% 11.1 % (0-10); NRBC Flagged by Analyzer 0 % (0-5); Neutrophil # 5.88 X10^3/uL (2.7-7.7); Neutrophil % 68.9 % (47-70); Platelet Count 187 K/mm3 (150-450); RBC Distribution Width SD 40.5 fl (35.1-43.9); Red Blood Count 4.95 M/mm3 (4.2-5.4); White Blood Count 8.5 K/mm3 (4.4-11.0)
[2021-01-28 09:53] LABS: Anion Gap 7 (5-15); BUN 15 mg/dL (7-18); Calcium,Total 9.2 mg/dL (8.5-10.1); Chloride 104 mmol/L (98-107); Creatinine, Serum 0.88 mg/dL (0.55-1.02); EST Glomerular Filtration Rate 68 mL/min (>60); Est Glom Filt Rate - Afr Amer 82 mL/min (>60); Estimated Creatinine Clearance 61.72 ml/min; Glucose 273 mg/dL (74-106); Potassium 3.8 mmol/L (3.5-5.1); Sodium Level 140 mmol/L (136-145)
[2021-01-28] MEDS: Vancomycin IV 1,000 MG/200 ML BAG 200 MG IV ×2 (10:38→21:52)
[2021-01-28] MEDS: 0.9% Saline Lock 10 ML Syringe IV (10:39)
[2021-01-28 10:47] LABS: Vancomycin, Trough Level 10.5 ug/mL (5.0-15.0)
[2021-01-28 11:45] LABS: Bedside Glucose 261 mg/dL (70-110)
--- NOTE | 2021-01-28 12:40 | PCM.PN.HOSP ---
Subjective Subjective Patient seen and examined. She has no complaints and feels well. Review of systems otherwise negative. Per discussion with her nurse, the redness has extended beyond the outlined margins. Patient thinks the swelling and redness has improved, as well as the pain. REview of systems is otherwise negative. Objective Data Objective Data Vital Signs: Vital Signs Temp Pulse Resp BP Pulse Ox 98.3 F 74 16 136/74 H 95 01/28/21 08:10 01/28/21 08:10 01/28/21 08:10 01/28/21 08:10 01/28/21 08:10 Oxygen Delivery Method Room Air Weight: 210 lb 15.718 oz Body Mass Index (BMI) 32.1 Intake & Output: Intake and Output for Last 24 Hours 01/26/21 01/27/21 01/28/21 23:59 23:59 23:59 Intake Total 390 / 390 1700 / 1950 700 / 700 Output Total 2500 / 2750 550 / 550 Balance 390 / 390 -800 / -800 150 / 150 Lab / Micro Data Result Diagrams: 01/28/21 09:28 01/28/21 09:28 Labs: Laboratory Results - last 24 hr 01/27/21 01/27/21 01/28/21 17:23 21:23 06:38 WBC RBC Hgb Hct MCV MCH MCHC RDW Std Deviation RDW Coeff of Darell Plt Count MPV Immature Gran % (Auto) Neut % (Auto) Lymph % (Auto) [place] % (Auto) Eos % (Auto) Baso % (Auto) Absolute Neuts (auto) Absolute Lymphs (auto) Nucleated RBC % Sodium Potassium Chloride Carbon Dioxide Anion Gap BUN Creatinine Estim Creat Clear Calc Est GFR (MDRD) Af Amer Est GFR (MDRD) Non-Af BUN/Creatinine Ratio Glucose Calcium Vancomycin Trough POC Glucose 170 H 302 H 208 H 01/28/21 01/28/21 01/28/21 09:28 09:28 09:28 WBC 8.5 RBC 4.95 Hgb 14.3 Hct 42.6 MCV 86.1 MCH 28.9 MCHC 33.6 RDW Std Deviation 40.5 RDW Coeff of Darell 13.0 Plt Count 187 MPV 10.5 Immature Gran % (Auto) 0.400 Neut % (Auto) 68.9 Lymph % (Auto) 17.1 L [place] % (Auto) 11.1 H Eos % (Auto) 2.1 Baso % (Auto) 0.4 Absolute Neuts (auto) 5.9 Absolute Lymphs (auto) 1.46 Nucleated RBC % 0 Sodium 140 Potassium 3.8 Chloride 104 Carbon Dioxide 29.0 Anion Gap 7 BUN 15 Creatinine 0.88 Estim Creat Clear Calc 61.72 Est GFR (MDRD) Af Amer 82 Est GFR (MDRD) Non-Af 68 BUN/Creatinine Ratio 17.0 Glucose 273 H Calcium 9.2 Vancomycin Trough 10.5 POC Glucose 01/28/21 11:42 WBC RBC Hgb Hct MCV MCH MCHC RDW Std Deviation RDW Coeff of Darell Plt Count MPV Immature Gran % (Auto) Neut % (Auto) Lymph % (Auto) [place] % (Auto) Eos % (Auto) Baso % (Auto) Absolute Neuts (auto) Absolute Lymphs (auto) Nucleated RBC % Sodium Potassium Chloride Carbon Dioxide Anion Gap BUN Creatinine Estim Creat Clear Calc Est GFR (MDRD) Af Amer Est GFR (MDRD) Non-Af BUN/Creatinine Ratio Glucose Calcium Vancomycin Trough POC Glucose 261 H Micro: Microbiology 01/26/21 22:11 Wound Abcess - Abdominal Gram Stain - Final 01/26/21 22:11 Wound Abcess - Abdominal Wound Culture - Final Meth. resistant Staph. aureus Physical Exam Const alert, oriented x3, no apparent distress and healthy appearing General Appearance: cooperative, well kempt and well developed Orientation / Consciousness: awake, oriented to person, oriented to place and oriented to time Exam Limitations: no limitations and altered mental status HEENT normocephalic, head/scalp atraumatic and moist oral mucous membranes Eyes PERRL, EOMs intact bilaterally and conjunctivae normal Neck nuchal rigidity, supple, no JVD, thyroid normal and no carotid bruits General: trachea midline Resp normal respiratory effort and clear to auscultation bilaterally Auscultation: Negative for rales, rhonchi or wheezes Cardio regular rate, regular rhythm, S1 normal heart sound, S2 normal heart sound, no murmurs, no rub and no gallops GI normal to inspection, nondistended, normoactive bowel sounds, soft to palpation, non-tender and non-distended Extremity normal to inspection, full ROM and no clubbing, cyanosis or edema Skin no wounds and no jaundice Skin Narrative: erythema and differential warmth over lower abdomen have improved, though erythema has extended a bit outside the outlined areas. Dressing over I&D site on lower abdomen. Skin is not as indurated as previously. General Skin Exam: no breakdown Neuro oriented x3, CN's II-XII intact bilaterally, moves all extremities, no focal motor deficits and no sensory deficits noted Sensorium / Orientation: awake and alert Speech: speech normal Psych thought process normal and affect normal Assessment & Plan Assessment/Plan (1) Cellulitis and abscess of other specified site: PLAN: #Cellulitis of the abdominal wall Patient currently on IV vancomycin and Zosyn. wound cultures grew MRSA. Blood cultures pending DC IV zosyn and continue with IV vancomycin Tylenol for pain and fever. #Lactic acidosis:resolved. #type 2 diabetes mellitus: ISS. Accuchecks ACHS. 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 DVT prophylaxis: not indicated as she is on xarelto. Disposition: for likely dc home tomorrow Charges/Coding Visit Charges Inpatient E&M: 33243 Subs Hosp L2
[2021-01-28 14:30] VITALS: BP 136/74; PULSE 74; RESP 16; TEMP 36.9; O2SAT 95
[2021-01-28 17:20] LABS: Bedside Glucose 203 mg/dL (70-110)
--- NOTE | 2021-01-28 18:29 | PCM.RX.CS ---
Consult Pharmacy has been consulted to manage selected antiobiotic: Vancomycin Type of Consult: Follow-up Suspected Infection: Skin/Soft tissue Labs: Sodium 140 mmol/L (136-145) 01/28/21 09:28 Potassium 3.8 mmol/L (3.5-5.1) 01/28/21 09:28 Chloride 104 mmol/L (98-107) 01/28/21 09:28 Carbon Dioxide 29.0 mmol/L (21.0-32.0) 01/28/21 09:28 Anion Gap 7 (5-15) 01/28/21 09:28 BUN 15 mg/dL (7-18) 01/28/21 09:28 Creatinine 0.88 mg/dL (0.55-1.02) 01/28/21 09:28 Est GFR (MDRD) Af Amer 82 mL/min (>60) 01/28/21 09:28 Est GFR (MDRD) Non-Af 68 mL/min (>60) 01/28/21 09:28 BUN/Creatinine Ratio 17.0 RATIO (10-20) 01/28/21 09:28 Glucose 273 mg/dL (74-106) H 01/28/21 09:28 Vancomycin Trough 10.5 ug/mL (5.0-15.0) 01/28/21 09:28 Microbiology: Microbiology 01/26/21 22:11 Wound Abcess - Abdominal Gram Stain - Final 01/26/21 22:11 Wound Abcess - Abdominal Wound Culture - Final Meth. resistant Staph. aureus Goal Trough: 10-15 mcg/mL Pharmacy Plan for Drug Dosing: VANCOMYCIN LEVEL RECEIVED Current Vancomycin Dose: 1000mg iv q12h (,22) Number of Doses Received: 2000mg iv x1 on 01/26/21 at 2152, 1000mg x2 Vancomycin Level: 10.5 Hours Since Last Dose: 12 Renal Function: SrCr 0.88 Renal Function Trend: SrCr increased 0.22 from 01/27/21 Lab/Micro: Vancomycin Plan/Comments: ordered goal trough is 10-15. recommend continuing current dose of 1000mg iv q12h and drawing another trough 01/30/21 at 0930 Pending Level: 01/30/21 at 0930 Pharmacy Service will continue to monitor and adjust dosing as required. Follow-Up Labs: Trough Vancomycin - 01/30/21 at 0930
[2021-01-28 20:30] VITALS: BP 145/87; PULSE 79; RESP 18; TEMP 36.8; O2SAT 96
[2021-01-28 21:51] VITALS: PULSE 80
[2021-01-28 23:56] LABS: Bedside Glucose 235 mg/dL (70-110)
[2021-01-29 03:15] VITALS: BP 151/92; PULSE 77; RESP 18; TEMP 36.8; O2SAT 95
[2021-01-29 06:11] LABS: Absolute Lymphocyte Count 1.49 X10^3/uL (0.83-4.51); Absolute Neutrophil Count 3.9 X10^3/uL (2.0-7.7); Basophil# 0.04 X10^3/uL; Basophil% 0.6 % (0-1); Eosinophils% 3.1 % (0-5); Hematocrit 43.1 % (37-47); Hemoglobin 14.3 g/dL (12.0-15.0); Lymphocyte # 1.49 X10^3/ul (0.83-4.51); Mean Corp Hgb Conc 33.2 g/dL (32-36); Mean Corpuscular Hgb 28.8 pg (27.0-32.0); Mean Corpuscular Volume 86.9 fL (81-99); Mean Platelet Vol. 10.8 fl (6.2-12.0); Monocyte# 0.86 X10^3/uL; Monocyte% 13.3 % (0-10); NRBC Flagged by Analyzer 0 % (0-5); Neutrophil # 3.87 X10^3/uL (2.7-7.7); Neutrophil % 59.5 % (47-70); Platelet Count 200 K/mm3 (150-450); RBC Distribution Width SD 40.8 fl (35.1-43.9); Red Blood Count 4.96 M/mm3 (4.2-5.4); White Blood Count 6.5 K/mm3 (4.4-11.0)
[2021-01-29 06:33] LABS: Anion Gap 5 (5-15); BUN 19 mg/dL (7-18); BUN/Creat Ratio 27.6 RATIO (10-20); Calcium,Total 9.1 mg/dL (8.5-10.1); Chloride 105 mmol/L (98-107); Creatinine, Serum 0.69 mg/dL (0.55-1.02); EST Glomerular Filtration Rate 90 mL/min (>60); Est Glom Filt Rate - Afr Amer 109 mL/min (>60); Estimated Creatinine Clearance 54.32 ml/min; Glucose 201 mg/dL (74-106); Potassium 3.8 mmol/L (3.5-5.1); Sodium Level 138 mmol/L (136-145)
[2021-01-29] MEDS: Insulin Lispro 100 UNIT/ML INSULN.PEN SC (06:40)
[2021-01-29 06:46] LABS: Bedside Glucose 198 mg/dL (70-110)
[2021-01-29 07:59] VITALS: BP 141/71; PULSE 71; RESP 16; TEMP 36.7; O2SAT 96
[2021-01-29] MEDS: Vancomycin IV 1,000 MG/200 ML BAG 200 MG IV (09:33)
--- NOTE | 2021-01-29 09:33 | PCM.DC ---
Discharge Instructions Diet Discharge Diet: 1800 Calorie Control Diet Activity Discharge Activity: Return to Normal Activity Follow Up Care Test Results: Test results from this visit will be discussed in further detail at your follow-up appointment, if applicable. Discharge Plan Admission Admit Date/Time: 01/26/21 22:09 Primary Reason for Your Visit: CELLULITIS OF THE thigh abdominal wall. Attending Provider: Abimbola Sutherland Primary Care Provider: Mathew Tuttle Instructions Additional Instructions / Restrictions: Follow-up with the wound care center. Discharge Orders/Prescriptions Prescriptions: New clindamycin HCl 300 mg capsule 600 mg PO TID Qty: 42 RF: 0 Continued metformin 500 MG tablet 500 mg PO BID RF: 0 anastrozole 1 mg tablet 1 mg PO DAILY RF: 0 Xarelto 20 mg tablet 20 mg PO DAILY RF: 0 Referrals / Follow Up: Mathew Tuttle MD [Primary Care Provider] - In 1 Week Disposition Disposition (needs filled in before D/C Order can be placed): Home, self care
[2021-01-29 09:35] VITALS: PULSE 71
[2021-01-29] MEDS: Metoprolol Tartrate 25 MG Tablet PO (09:35)
[2021-01-29] MEDS: Anastrozole 1 MG TABLET PO (09:35)
[2021-01-29] MEDS: Rivaroxaban 20 MG Tablet PO (10:09)
--- NOTE | 2021-01-29 10:36 | NURSING ---
educated and showed pt how to do dressing change. pt stated she understood.
--- NOTE | 2021-01-29 11:42 | PCM.DC.SUM ---
Providers Date of Admission: 01/26/21 Primary Care Physician: Dr. Mathew Tuttle MD Reason For Visit: ABDOMINAL CELLULITIS Diagnosis Discharge Diagnosis (1) Cellulitis and abscess of other specified site: Status: Acute Code(s): L03.818 - Cellulitis of other sites; L02.818 - Cutaneous abscess of other sites Medications at Discharge Home Medications metformin 500 mg PO BID 03/02/19 anastrozole 1 mg PO DAILY 01/26/21 Xarelto 20 mg PO DAILY 01/27/21 clindamycin HCl 600 mg PO TID #42 cap 01/29/21 Hospital Course Operations None Procedures - (Bedside incision and drainage of small left lower abdominal abscess.) Summary of Care Provided Minutes Spent on Discharge: 28 Hospital Course: This is a 70 years old female patient presented to the emergency room because of redness and swelling of the lower abdominal wall as well as tenderness on the left lower abdominal wall and she was found to have acute lower abdominal wall cellulitis/left lower abdominal wall small abscess. Bedside incision and drainage was performed by ER physician. Patient was started on IV vancomycin and Zosyn. Although her lactic acid was elevated, there was no evidence of sepsis or severe sepsis. Lactic acid returned back to normal with IV fluids. With IV antibiotics, redness and erythema of the lower abdominal wall improved. Wound culture from the lower abdominal wall revealed MRSA. Blood culture showed no growth in 48 hours. Patient remained afebrile throughout the hospital stay. She was discharged home in a stable medical condition, discharged on clindamycin 600 mg p.o. 3 times daily for 7 days more of treatment, continued on her previous home medications without any changes, recommended follow-up with PCP in 1 week and follow-up with wound care center as well. Physical Exam Const alert, oriented x3, no apparent distress and no limitations General Appearance: cooperative, comfortable and well kempt HEENT normocephalic, head/scalp atraumatic and moist oral mucous membranes Head and Scalp: normocephalic and atraumatic Eyes PERRL, EOMs intact bilaterally, conjunctivae normal and no scleral icterus General Eye: normal appearance of both eyes Periorbital: periorbital findings normal Neck no lymphadenopathy, supple, no meningeal signs, no JVD and no carotid bruits General: trachea midline Thyroid: thyroid normal Resp normal respiratory effort, normal air movement and clear to auscultation bilaterally Auscultation: Negative for crackles, rales, rhonchi or wheezes Cardio regular rate, regular rhythm, S1 normal heart sound, S2 normal heart sound, no murmurs and no JVD Peripheral Pulses: pulses 2+ throughout GI normal to inspection, nondistended, normoactive bowel sounds, soft to palpation, non-tender and non-distended; Negative for hepatosplenomegaly Auscultation: normoactive bowel sounds Extremity normal to inspection, full ROM and no clubbing, cyanosis or edema Skin no rashes or lesions noted, no wounds and no petechiae Neuro oriented x3, CN's II-XII intact bilaterally and moves all extremities Sensorium / Orientation: alert Speech: speech normal Motor Exam: strength 5/5 throughout Psych mental status grossly normal, affect normal and denies hallucinations ABG / Lab / Microbiology Data Result Diagrams: 01/29/21 05:10 01/29/21 05:10 Laboratory: Laboratory Results - last 24 hr 01/28/21 01/28/21 01/28/21 11:42 16:55 21:51 WBC RBC Hgb Hct MCV MCH MCHC RDW Std Deviation RDW Coeff of Darell Plt Count MPV Immature Gran % (Auto) Neut % (Auto) Lymph % (Auto) [place] % (Auto) Eos % (Auto) Baso % (Auto) Absolute Neuts (auto) Absolute Lymphs (auto) Nucleated RBC % Sodium Potassium Chloride Carbon Dioxide Anion Gap BUN Creatinine Estim Creat Clear Calc Est GFR (MDRD) Af Amer Est GFR (MDRD) Non-Af BUN/Creatinine Ratio Glucose Calcium POC Glucose 261 H 203 H 235 H 01/29/21 01/29/21 01/29/21 05:10 05:10 06:38 WBC 6.5 RBC 4.96 Hgb 14.3 Hct 43.1 MCV 86.9 MCH 28.8 MCHC 33.2 RDW Std Deviation 40.8 RDW Coeff of Darell 13.0 Plt Count 200 MPV 10.8 Immature Gran % (Auto) 0.500 Neut % (Auto) 59.5 Lymph % (Auto) 23.0 [place] % (Auto) 13.3 H Eos % (Auto) 3.1 Baso % (Auto) 0.6 Absolute Neuts (auto) 3.9 Absolute Lymphs (auto) 1.49 Nucleated RBC % 0 Sodium 138 Potassium 3.8 Chloride 105 Carbon Dioxide 28.0 Anion Gap 5 BUN 19 H Creatinine 0.69 Estim Creat Clear Calc 54.32 Est GFR (MDRD) Af Amer 109 Est GFR (MDRD) Non-Af 90 BUN/Creatinine Ratio 27.6 H Glucose 201 H Calcium 9.1 POC Glucose 198 H Microbiology: Microbiology 01/26/21 22:11 Gram Stain - Final Wound Abcess - Abdominal Wound Culture - Final Meth. resistant Staph. aureus Anaerobic Culture - Final No anaerobic bacteria isolated. 01/26/21 20:55 Blood Culture - Preliminary Blood Culture (Wb) - Right Wrist No growth in 48 hours. 01/26/21 21:05 Blood Culture - Preliminary Blood Culture (Wb) - Left Hand No growth in 48 hours. Microbiology 01/26/21 22:11 Wound Abcess - Abdominal Gram Stain - Final 01/26/21 22:11 Wound Abcess - Abdominal Wound Culture - Final Meth. resistant Staph. aureus 01/26/21 22:11 Wound Abcess - Abdominal Anaerobic Culture - Final No anaerobic bacteria isolated. 01/26/21 20:55 Blood Culture (Wb) - Right Wrist Blood Culture - Preliminary No growth in 48 hours. 01/26/21 21:05 Blood Culture (Wb) - Left Hand Blood Culture - Preliminary No growth in 48 hours. D/C Instructions Discharge Diet: 1800 Calorie Control Diet Meaningful Use Info Meaningful Use Diagnoses (Choose all that apply): None applicable Discharge Plan Admission Admit Date/Time: 01/26/21 22:09 Primary Reason for Your Visit: CELLULITIS OF THE thigh abdominal wall. Attending Provider: Abimbola Sutherland Primary Care Provider: Mathew Tuttle Instructions Additional Instructions / Restrictions: Follow-up with the wound care center. Discharge Orders/Prescriptions Prescriptions: New clindamycin HCl 300 mg capsule 600 mg PO TID Qty: 42 RF: 0 Continued metformin 500 MG tablet 500 mg PO BID RF: 0 anastrozole 1 mg tablet 1 mg PO DAILY RF: 0 Xarelto 20 mg tablet 20 mg PO DAILY RF: 0 Referrals / Follow Up: Mathew Tuttle MD [Primary Care Provider] - In 1 Week Disposition Disposition (needs filled in before D/C Order can be placed): Home, self care Charges/Coding Visit Charges Inpatient E&M: 65520 Disch Hosp
== END 2021-01-29 11:16 | disposition home or self-care (01) | DRG 580 ==
LOC: ED 22:07 → MS3 22:38
PROVIDERS: Student in an Organized Health Care Education/Training Program; Admitting Provider Internal Medicine; Emergency Provider Emergency Medicine; PCP Family Medicine; Visit Provider Hospitalist
DX: L03.311 Cellulitis of abdominal wall (principal); E87.2 Acidosis; L02.211 Cutaneous abscess of abdominal wall; A49.02 Methicillin resistant Staphylococcus aureus infection, unspecified site; E11.65 Type 2 diabetes mellitus with hyperglycemia; Z85.3 Personal history of malignant neoplasm of breast; Z86.718 Personal history of other venous thrombosis and embolism; Z79.01 Long term (current) use of anticoagulants
CPT/HCPCS: 36415; 80048; 80053; 80202; 82962; 83605; 85025; 85610; 85730; 87040; 87070; 87075; 87077; 87186; 87205; 93005; 99285; J7030; A4216

== ENCOUNTER 2021-02-20 08:15 | Outpatient (RCR) | payer MEDICARE, SELFPAY ==
[2021-01-26 23:48] VITALS: BMI 32.1
[2021-02-06 09:41] VITALS: BP 143/78; PULSE 74; TEMP 36.3; BMI 32.1
--- NOTE | 2021-02-06 14:59 | HP.PCM_ITS ---
History of Present Illness Date of Service: 02/06/21 Chief Complaint: Open surgical wound of the left lower quadrant abdominal wall History of Wound: This is a 70-year-old female who presented for evaluation and management relative to a surgical wound on the left lower quadrant of her abdomen. In early January,, the patient developed cellulitis and an abscess in the left lower quadrant of her abdomen. She presented to the emergency department on January 26, 2021, where an incision and drainage of an abscess was performed, and the patient was admitted for 3-day hospital stay. Cultures of the drained abscess were positive for MRSA. Patient was treated with Zosyn and vancomycin intravenously while in the hospital. She was subsequently discharged on clindamycin 600 mg p.o. 3 times daily for a total of 7 days. The prescription has just recently been completed. The margins of the cellulitis had been marked with indelible ink prior to the patient's presentation at our facility, and the erythema and cellulitis appears to be essentially totally abated at this time. The incised abscess and cavity persist. The patient has been packing the cavity with Nu Gauze on a daily basis. The patient has had prior episodes of MRSA infections, involving other areas on her abdominal wall, as well as her right hand. MRSA is also known to have been diagnosed in several of her grandchildren, as well as her sister. The patient was also diagnosed with acute deep vein thrombosis in the left lower extremity in July 2020, and remains on oral Xarelto at this time. [facility] Medical History (Updated 02/06/21 @ 15:[address] Devon Coppola MD) CPAP (continuous positive airway pressure) dependence Diabetes DVT (deep venous thrombosis) History of ductal carcinoma in situ (DCIS) of breast History of DVT (deep vein thrombosis) MRSA (methicillin resistant staph aureus) culture positive Non-smoker Sleep apnea Home Medications metformin 500 mg PO BID 03/02/19 [History Last Taken 01/26/21 18:00] anastrozole 1 mg PO DAILY 01/26/21 [History Last Taken 01/26/21 07:00] Xarelto 20 mg PO DAILY 01/27/21 [History Last Taken Unknown] clindamycin HCl 600 mg PO TID #42 cap 01/29/21 [Rx Last Taken Unknown] Allergy/AdvReac Type Severity Reaction Status Date / Time No Known Allergies Allergy Verified 01/26/21 20:23 no surgical history (Patient has a history of tonsillectomy, right inguinal hernia repair, hysterectomy, and right breast biopsy.) Social History (Updated 01/26/21 @ 20:[address] Francisco Peng MD) household members: none Smoking Status: Never smoker alcohol intake: current alcohol intake frequency: holidays/special occasions only substance use type: does not use Vital Signs Vital Signs Vital Signs: 02/06/21 09:41 Temperature 97.3 F L Temperature Source Oral Pulse Rate 74 Blood Pressure 143/78 H Blood Pressure Mean 99 Blood Pressure Source Monitor Blood Pressure Position Semi-Fowlers Blood Pressure Location Left Arm Weight Body Mass Index (BMI) 32.1 Physical Exam Const alert, oriented x3, no apparent distress and well nourished General Appearance: cooperative, comfortable, well kempt and well developed Orientation / Consciousness: awake, oriented to person, oriented to place and oriented to time Nutritional Appearance: overweight and other Other Details: BMI is 32.1 HEENT normocephalic and head/scalp atraumatic Head and Scalp: normal to inspection, normocephalic and atraumatic Face and Sinus: normal facial exam Nose: external nose normal External Ear: external ears normal Eyes PERRL and EOMs intact bilaterally Resp normal respiratory effort and no use of accessory muscles Effort and Inspection: able to speak in complete sentences GI soft to palpation, non-tender and non-distended GI Narrative: Examination of the patient's abdominal wall reveals a small linear incision in the left lower abdominal quadrant. There is no significant surrounding erythema or cellulitis. Using a sterile probe, the depth appears to approach 3 cm. There is only slight undermining. There is no significant drainage. There is no odor. Palpation: soft Rectal Exam: deferred Extremity no calf tenderness General Extremity: Negative for clubbing or cyanosis Neuro oriented x3, CN's II-XII intact bilaterally and moves all extremities Speech: speech normal Psych mental status grossly normal Appearance: grossly normal and appropriate Attitude: calm and engaged Activity / Motor Behavior: appropriate eye contact Speech: normal speech Mood & Affect: euthymic mood Attention / Concentration: attention grossly intact Debridement Note Debridement Note Post-Debridement Measurements and Additional Note: Post-Debridement Measurements/Treatment WC - Nurse 1 - General Ulcer Assessment Start: 02/06/21 09:41 Freq: Status: Active Protocol: CONRAD Activity Type Activity Date Activity User E-Sign Co-Sign Detail Recorded Client Recorded Date Recorded By Document 02/06/21 09:41 KALYN [id number] 02/06/21 09:53 KALYN 02/06/21 09:41 - Today's Visit Information Type of service Initial Visit Arrival Mode Ambulatory Patient Identification Verified (Name & Yes ) Height and Weight Body Mass Index (BMI) 32.1 BMI Classification Obese Vital Signs Temperature (97.8 F-99.1 F) 97.3 F L Temperature Source Oral Pulse Rate (60-100) 74 Pulse Location Monitor Blood Pressure (90/60-120/80) 143/78 H Blood Pressure Mean 99 Source Monitor Position Semi-Fowlers Blood Pressure Location Left Arm History Since Last Visit- (Skip if this is Patient's initial visit) Have you changed medications since your No last visit? Any new allergies or adverse reactions No Had a fall/change in ADL's that may No increase risk of falls Signs or symptoms of abuse and/or No neglect since last visit Have you been in the hospital since your No last visit? Has dressing in place as prescribed No Has compression in place as prescribed N/A Has offloadiing in place as prescribed N/A Experienced any changes in pain level or No management Left Footwear Regular Shoe Right Footwear Regular Shoe Pain Scale: 0-10 Numeric Is Patient Pain Free? Yes REENA - Nurse 1 - General Ulcer Measurement Start: 02/06/21 09:41 Freq: Status: Active Protocol: Activity Type Activity Date Activity User E-Sign Co-Sign Detail Recorded Client Recorded Date Recorded By Document 02/06/21 09:41 KALYN [id number] 02/06/21 09:53 KALYN 02/06/21 09:41 Wound Center Nurse 1 #1 Left Lower Quad -Current Size (cm) - Length 0.1 -Current Size (cm) - Width 0.8 -Current Size (cm) - Depth 1 -Total Square Cm 0.08 -Exudate Amt Small -Exudate Type Serosanguineous -Wound Margin Distinct, Outline Attached -Granulation Amt Small (1-33%) -Granulation Quality Red -Necrosis Amt None Present (0 %) -Texture (Cara-wound Skin Appearance) Assessed, Scarring -Moisture (Cara-wound Skin Appearance) No Abnormality, Assessed -Color (Cara-wound Skin Appearance) No Abnormality, Assessed -Temperature (Cara-wound Skin No Abnormality Appearance) (Pt Warm) -Tenderness on Palpation (Cara-wound No Skin Appearance) -Ulcer Cleansing Rinsed/ Irrigated with Saline -Foul Odor after Cleansing No -Anesthetic Used 4% Lidocaine Solution WC - Nurse 2 - General Ulcer CM Notes Start: 02/06/21 09:41 Freq: Status: Active Protocol: Activity Type Activity Date Activity User E-Sign Co-Sign Detail Recorded Client Recorded Date Recorded By Document 02/06/21 12:39 TONY [id number] 02/06/21 12:41 TONY 02/06/21 12:39 Wound Center Nurse 2 -Time 10:30 -Correct Patient Yes -Correct Side, Site, Position Yes -Correct Procedure Yes -Procedure Performed Yes -Type of Procedure Debridement -Clinical Debridement Subcutaneous -Tissue Removed Subcutaneous -Post Debridement (cm) - Length 0.1 -Post Debridement (cm) - Width 0.8 -Post Debridement (cm) - Depth 3.0 -Total Square (Post) (cm) 0.08 -Area of Debridement (cm) - Length 0.1 -Area of Debridement (cm) - Width 0.8 -Total Square (Area) (cm) 0.08 -Tunneling No -Undermining/Tunneling No -Circular Undermining No -Wound/Ulcer Outcome Not Healed -Ulcer Cleansing Rinsed/ Irrigated with Saline -Foul Odor after Cleansing No -Bioengineered Tissue No -Debridement - Subq, 1st 20sq cm Yes Pain Scale: 0-10 Numeric Is Patient Pain Free? Yes - Nurse 3 - General Ulcer D/C NN Start: 02/06/21 09:41 Freq: Status: Active Protocol: Activity Type Activity Date Activity User E-Sign Co-Sign Detail Recorded Client Recorded Date Recorded By Document 02/06/21 10:57 KALYN [id number] 02/06/21 10:58 KR 02/06/21 10:57 Wound Care Nurse 3 #1 Left Lower Quad -Primary Dressing Applied Nugauze, Plain Iodoform -Primary Dressing Covered/Secured with Dry Gauze, Secured with Tape -Nugauze, Plain Iodoform 1/4 1 Pain Scale: 0-10 Numeric Is Patient Pain Free? Yes WC - Visit Discharge Discharge Condition Stable Ambulatory Status Ambulatory Transportation Private Auto No debridement was completed: No debridement was completed today Assessment/Plan Assessment/Plan (1) MRSA (methicillin resistant staph aureus) culture positive: CODE(S): Z22.322 - Carrier or suspected carrier of Methicillin resistant Staphylococcus aureus (2) Cellulitis and abscess of other specified site: CODE(S): L03.818 - Cellulitis of other sites; L02.818 - Cutaneous abscess of other sites (3) Abdominal wall abscess: CODE(S): L02.211 - Cutaneous abscess of abdominal wall (4) History of type 2 diabetes mellitus: CODE(S): Z86.39 - Personal history of other endocrine, nutritional and metabolic disease (5) Type 2 diabetes mellitus with hyperglycemia: CODE(S): E11.65 - Type 2 diabetes mellitus with hyperglycemia (6) Obesity (BMI 30.0-34.9): CODE(S): E66.9 - Obesity, unspecified (7) History of DVT (deep vein thrombosis): CODE(S): Z86.718 - Personal history of other venous thrombosis and embolism PLAN: This is a 70-year-old female who presented with a recent left lower quadrant abdominal wall abscess associated with cellulitis. She was treated for 3 days in the hospital setting, where she received intravenous antibiotics. She was subsequently discharged on clindamycin 600 mg p.o. 3 times daily for 7 days, which has now been completed. The cellulitis has now resolved. The abscess, which was drained in the emergency department on January 26, 2021, persists as a small cavity in the left lower abdominal wall. The patient is to continue p acking the cavity on a daily basis using 1/4 inch Nu Gauze. Additional antibiotics do not appear to be warranted, as cellulitis has resolved. Patient is to return in 1 week for reassessment. We are to consider a MRSA protocol, which may include Hibiclens showers and mupirocin nasal applications. This may be considered due to the patient's history of MRSA infections, and similar infections in close relatives. Total time: 65 minutes.
[2021-02-13 08:22] VITALS: BP 171/92; PULSE 73; TEMP 36.2; BMI 32.1
--- NOTE | 2021-02-13 08:39 | HP.PCM_ITS ---
History of Present Illness Date of Service: 02/13/21 Chief Complaint: Open surgical wound of the left lower quadrant abdominal wall History of Wound: This is a 70-year-old female who presented for evaluation and management relative to a surgical wound on the left lower quadrant of her abdomen. In early January,, the patient developed cellulitis and an abscess in the left lower quadrant of her abdomen. She presented to the emergency department on January 26, 2021, where an incision and drainage of an abscess was performed, and the patient was admitted for 3-day hospital stay. Cultures of the drained abscess were positive for MRSA. Patient was treated with Zosyn and vancomycin intravenously while in the hospital. She was subsequently discharged on clindamycin 600 mg p.o. 3 times daily for a total of 7 days. The prescription has just recently been completed. The margins of the cellulitis had been marked with indelible ink prior to the patient's presentation at our facility, and the erythema and cellulitis appears to be essentially totally abated at this time. The incised abscess and cavity persist. The patient has been packing the cavity with Nu Gauze on a daily basis. The patient has had prior episodes of MRSA infections, involving other areas on her abdominal wall, as well as her right hand. MRSA is also known to have been diagnosed in several of her grandchildren, as well as her sister. The patient was also diagnosed with acute deep vein thrombosis in the left lower extremity in July 2020, and remains on oral Xarelto at this time. [facility] Medical History (Updated 02/06/21 @ 15:[address] Devon Coppola MD) CPAP (continuous positive airway pressure) dependence Diabetes DVT (deep venous thrombosis) History of ductal carcinoma in situ (DCIS) of breast History of DVT (deep vein thrombosis) MRSA (methicillin resistant staph aureus) culture positive Non-smoker Sleep apnea Home Medications metformin 500 mg PO BID 03/02/19 [History Last Taken 01/26/21 18:00] anastrozole 1 mg PO DAILY 01/26/21 [History Last Taken 01/26/21 07:00] Xarelto 20 mg PO DAILY 01/27/21 [History Last Taken Unknown] clindamycin HCl 600 mg PO TID #42 cap 01/29/21 [Rx Last Taken Unknown] Allergy/AdvReac Type Severity Reaction Status Date / Time No Known Allergies Allergy Verified 01/26/21 20:23 Social History (Updated 01/26/21 @ 20:[address] Francisco Peng MD) household members: none Smoking Status: Never smoker alcohol intake: current alcohol intake frequency: holidays/special occasions only substance use type: does not use Vital Signs Vital Signs Vital Signs: 02/13/21 08:22 Temperature 97.1 F L Temperature Source Temporal Pulse Rate 73 Blood Pressure 171/92 H Blood Pressure Mean 118 Blood Pressure Source Monitor Blood Pressure Position Semi-Fowlers Blood Pressure Location Left Arm Weight Body Mass Index (BMI) 32.1 Physical Exam Const alert, oriented x3, no apparent distress and well nourished General Appearance: cooperative, comfortable, well kempt and well developed Orientation / Consciousness: awake, oriented to person, oriented to place and oriented to time Nutritional Appearance: overweight HEENT normocephalic and head/scalp atraumatic Head and Scalp: normal to inspection, normocephalic and atraumatic Face and Sinus: normal facial exam External Ear: external ears normal Eyes PERRL and EOMs intact bilaterally General Eye: normal appearance of both eyes Resp normal respiratory effort, normal air movement, no retractions and no use of accessory muscles Effort and Inspection: able to speak in complete sentences GI Palpation: soft Extremity no calf tenderness General Extremity: Negative for clubbing or cyanosis Skin Wound Narrative: The open wound persists on the patient's left lower abdominal quadrant. It is much smaller in size. Its depth now measures approximately 8 mm. There is no sign of infection or cellulitis. There is a small amount of bioburden. There is no odor. There is no significant drainage noted. Neuro oriented x3, CN's II-XII intact bilaterally and moves all extremities Psych Appearance: grossly normal and appropriate Activity / Motor Behavior: appropriate eye contact Speech: normal speech Mood & Affect: euthymic mood Thought Process: normal thought process Attention / Concentration: attention grossly intact Debridement Note Debridement Note Post-Debridement Measurements and Additional Note: Post-Debridement Measurements/Treatment WC - Nurse 1 - General Ulcer Assessment Start: 02/06/21 09:41 Freq: Status: Active Protocol: REENA.LOWARTHUR Activity Type Activity Date Activity User E-Sign Co-Sign Detail Recorded Client Recorded Date Recorded By Document 02/06/21 09:41 KR [id number] 02/06/21 09:53 KR Document 02/13/21 08:22 KR [id number] 02/13/21 08:26 KR 02/06/21 02/13/21 09:41 08:22 WC - Today's Visit Information Type of service Initial Visit Follow-up Visit (Physician/[employer] ) Arrival Mode Ambulatory Ambulatory Patient Identification Verified (Name & Yes Yes ) Height and Weight Body Mass Index (BMI) 32.1 32.1 BMI Classification Obese Obese Vital Signs Temperature (97.8 F-99.1 F) 97.3 F L 97.1 F L Temperature Source Oral Temporal Pulse Rate (60-100) 74 73 Pulse Location Monitor Monitor Blood Pressure (90/60-120/80) 143/78 H 171/92 H Blood Pressure Mean 99 118 Source Monitor Monitor Position Semi-Fowlers Semi-Fowlers Blood Pressure Location Left Arm Left Arm History Since Last Visit- (Skip if this is Patient's initial visit) Have you changed medications since your No No last visit? Any new allergies or adverse reactions No No Had a fall/change in ADL's that may No No increase risk of falls Signs or symptoms of abuse and/or No No neglect since last visit Have you been in the hospital since your No No last visit? Has dressing in place as prescribed No Yes Has compression in place as prescribed N/A N/A Has offloadiing in place as prescribed N/A N/A Experienced any changes in pain level or No No management Left Footwear Regular Shoe Regular Shoe Right Footwear Regular Shoe Regular Shoe Pain Scale: 0-10 Numeric Is Patient Pain Free? Yes Yes - Nurse 1 - General Ulcer Measurement Start: 02/06/21 09:41 Freq: Status: Active Protocol: Activity Type Activity Date Activity User E-Sign Co-Sign Detail Recorded Client Recorded Date Recorded By Document 02/06/21 09:41 KR [id number] 02/06/21 09:53 KR Document 02/13/21 08:22 KALYN [id number] 02/13/21 08:26 KR 02/06/21 02/13/21 09:41 08:22 Wound Center Nurse 1 #1 Left Lower Quad -Current Size (cm) - Length 0.1 0.5 -Current Size (cm) - Width 0.8 0.2 -Current Size (cm) - Depth 1 0.4 -Total Square Cm 0.08 0.10 -Exudate Amt Small Small -Exudate Type Serosanguineous Serosanguineous -Wound Margin Distinct, Distinct, Outline Outline Attached Attached -Granulation Amt Small (1-33%) Small (1-33%) -Granulation Quality Red Red -Necrosis Amt None Present (0 Small (1-33%) %) -Necrotic Tissue Type Adherent Slough -Texture (Cara-wound Skin Appearance) Assessed, Assessed, Scarring Scarring -Moisture (Cara-wound Skin Appearance) No Abnormality, No Abnormality, Assessed Assessed -Color (Cara-wound Skin Appearance) No Abnormality, No Abnormality, Assessed Assessed -Temperature (Cara-wound Skin No Abnormality No Abnormality Appearance) (Pt Warm) (Pt Warm) -Tenderness on Palpation (Cara-wound No No Skin Appearance) -Ulcer Cleansing Rinsed/ Rinsed/ Irrigated with Irrigated with Saline Saline -Foul Odor after Cleansing No No -Anesthetic Used 4% Lidocaine 4% Lidocaine Solution Solution WC - Nurse 2 - General Ulcer CM Notes Start: 02/06/21 09:41 Freq: Status: Active Protocol: Activity Type Activity Date Activity User E-Sign Co-Sign Detail Recorded Client Recorded Date Recorded By Document 02/06/21 12:39 PL [id number] 02/06/21 12:41 PL Edit Result 02/06/21 12:39 PL (1) [id number] 02/07/21 07:05 PL (1) #1 Left Lower Quad - Correct Patient Yes => - Correct Side, Site, Position Yes => - Correct Procedure Yes => - Procedure Performed Yes => - Type of Procedure Debridement => - Clinical Debridement Subcutaneous => - Tissue Removed Subcutaneous => - Area of Debridement (cm) - Length 0.1 => - Area of Debridement (cm) - Width 0.8 => - Total Square (Area) (cm) 0.08 => - Debridement - Subq, 1st 20sq cm Yes => 02/06/21 12:39 Wound Center Nurse 2 -Time 10:30 -Post Debridement (cm) - Length 0.1 -Post Debridement (cm) - Width 0.8 -Post Debridement (cm) - Depth 3.0 -Total Square (Post) (cm) 0.08 -Tunneling No -Undermining/Tunneling No -Circular Undermining No -Wound/Ulcer Outcome Not Healed -Ulcer Cleansing Rinsed/ Irrigated with Saline -Foul Odor after Cleansing No -Bioengineered Tissue No Pain Scale: 0-10 Numeric Is Patient Pain Free? Yes WC - Nurse 3 - General Ulcer D/C NN Start: 02/06/21 09:41 Freq: Status: Active Protocol: Activity Type Activity Date Activity User E-Sign Co-Sign Detail Recorded Client Recorded Date Recorded By Document 02/06/21 10:57 KALYN [id number] 02/06/21 10:58 KALYN 02/06/21 10:57 Wound Care Nurse 3 #1 Left Lower Quad -Primary Dressing Applied Nugauze, Plain Iodoform -Primary Dressing Covered/Secured with Dry Gauze, Secured with Tape -Nugauze, Plain Iodoform 1/4 1 Pain Scale: 0-10 Numeric Is Patient Pain Free? Yes WC - Visit Discharge Discharge Condition Stable Ambulatory Status Ambulatory Transportation Private Auto Wound debrided: Left lower abdominal quadrant Laterality: Left Type of Debridement: Excisional debridement Anesthesia Used: 5% Lidocaine Gel Depth: Down to and including healthy tissue and in the subcutaneous layer Percentage of wound debrided: 100 Instrument Used: 3mm curette Tissue Removed: Bioburden Severity: Fat Layer Exposed Amount of bleeding with debridement: Mild Bleeding Controlled with: Compression and gauze Patient tolerated procedure: Patient tolerated procedure well Assessment/Plan Assessment/Plan (1) MRSA (methicillin resistant staph aureus) culture positive: CODE(S): Z22.322 - Carrier or suspected carrier of Methicillin resistant Staphylococcus aureus (2) History of DVT (deep vein thrombosis): CODE(S): Z86.718 - Personal history of other venous thrombosis and embolism (3) Obesity (BMI 30.0-34.9): CODE(S): E66.9 - Obesity, unspecified (4) Abdominal wall abscess: CODE(S): L02.211 - Cutaneous abscess of abdominal wall (5) History of type 2 diabetes mellitus: CODE(S): Z86.39 - Personal history of other endocrine, nutritional and metabolic disease (6) Cellulitis and abscess of other specified site: CODE(S): L03.818 - Cellulitis of other sites; L02.818 - Cutaneous abscess of other sites (7) Type 2 diabetes mellitus with hyperglycemia: CODE(S): E11.65 - Type 2 diabetes mellitus with hyperglycemia (8) Acidosis, lactic: CODE(S): E87.2 - Acidosis PLAN: This is a 70-year-old female who presented with a recent left lower quadrant abdominal wall abscess associated with cellulitis. She was treated for 3 days in the hospital setting, where she received intravenous antibiotics. She was subsequently discharged on clindamycin 600 mg p.o. 3 times daily for 7 days, which has now been completed. The cellulitis has now resolved. The abscess, which was drained in the emergency department on January 26, 2021, persists as a small cavity in the left lower abdominal wall. The patient is to continue packing the cavity on a daily basis using 1/4 inch Nu Gauze. Additional antibiotics do not appear to be warranted, as cellulitis has resolved. Patient is to return in 1 week for reassessment. We are to implement a MRSA decolonization protocol. Patient has been provided a prescription for chlorhexidine 4% for daily showers. Mupirocin 2% has also been prescribed for intranasal use, to be applied twice daily for 5 days, twice monthly. Total time: 28 minutes.
[2021-02-20 08:24] VITALS: BP 152/82; PULSE 75; TEMP 36.3; BMI 32.1
[2021-02-20 08:27] VITALS: BP 152/82; PULSE 75; TEMP 36.3; BMI 32.1
--- NOTE | 2021-02-20 08:53 | HP.PCM_ITS ---
History of Present Illness Date of Service: 02/20/21 Chief Complaint: Open surgical wound of the left lower quadrant abdominal wall History of Wound: This is a 70-year-old female who presented for evaluation and management relative to a surgical wound on the left lower quadrant of her abdomen. In early January,, the patient developed cellulitis and an abscess in the left lower quadrant of her abdomen. She presented to the emergency department on January 26, 2021, where an incision and drainage of an abscess was performed, and the patient was admitted for 3-day hospital stay. Cultures of the drained abscess were positive for MRSA. Patient was treated with Zosyn and vancomycin intravenously while in the hospital. She was subsequently discharged on clindamycin 600 mg p.o. 3 times daily for a total of 7 days. The prescription has just recently been completed. The margins of the cellulitis had been marked with indelible ink prior to the patient's presentation at our facility, and the erythema and cellulitis appears to be essentially totally abated at this time. The incised abscess and cavity persist. The patient has been packing the cavity with Nu Gauze on a daily basis. The patient has had prior episodes of MRSA infections, involving other areas on her abdominal wall, as well as her right hand. MRSA is also known to have been diagnosed in several of her grandchildren, as well as her sister. The patient was also diagnosed with acute deep vein thrombosis in the left lower extremity in July 2020, and remains on oral Xarelto at this time. [facility] Medical History (Updated 02/20/21 @ 08:[address] Devon Coppola MD) CPAP (continuous positive airway pressure) dependence Diabetes DVT (deep venous thrombosis) History of ductal carcinoma in situ (DCIS) of breast History of DVT (deep vein thrombosis) MRSA (methicillin resistant staph aureus) culture positive Non-smoker Sleep apnea Surgical wound, non healing Home Medications metformin 500 mg PO BID 03/02/19 [History Last Taken 01/26/21 18:00] anastrozole 1 mg PO DAILY 01/26/21 [History Last Taken 01/26/21 07:00] Xarelto 20 mg PO DAILY 01/27/21 [History Last Taken Unknown] clindamycin HCl 600 mg PO TID #42 cap 01/29/21 [Rx Last Taken Unknown] Allergy/AdvReac Type Severity Reaction Status Date / Time No Known Allergies Allergy Verified 01/26/21 20:23 Social History (Updated 01/26/21 @ 20:[address] Francisco Peng MD) household members: none Smoking Status: Never smoker alcohol intake: current alcohol intake frequency: holidays/special occasions only substance use type: does not use Vital Signs Vital Signs Vital Signs: 02/20/21 08:24 02/20/21 08:27 Temperature 97.3 F L 97.3 F L Temperature Source Temporal Temporal Pulse Rate 75 75 Blood Pressure 152/82 H 152/82 H Blood Pressure Mean 105 105 Blood Pressure Source Monitor Monitor Blood Pressure Position Semi-Fowlers Semi-Fowlers Blood Pressure Location Left Arm Left Arm Weight Body Mass Index (BMI) 32.1 Physical Exam Const alert, oriented x3, no apparent distress and well nourished General Appearance: cooperative, comfortable and well developed Orientation / Consciousness: awake, oriented to person, oriented to place and oriented to time HEENT normocephalic and head/scalp atraumatic Head and Scalp: normal to inspection, normocephalic and atraumatic External Ear: external ears normal Eyes PERRL and EOMs intact bilaterally General Eye: normal appearance of both eyes Resp normal respiratory effort, normal air movement, no retractions and no use of accessory muscles Effort and Inspection: able to speak in complete sentences GI Palpation: soft Extremity no calf tenderness General Extremity: Negative for clubbing or cyanosis Skin Wound Narrative: The wound in the patient's left lower abdominal quadrant appears to be smaller in size. Its depth is approximately 6 mm, though documented elsewhere. There is no sign of infection or cellulitis. There is no odor. There is no associated redness or cellulitis. There is no significant drainage. There is a small amount of bioburden. Neuro oriented x3 and CN's II-XII intact bilaterally Speech: speech normal Psych Appearance: grossly normal and appropriate Attitude: calm and engaged Activity / Motor Behavior: appropriate eye contact Speech: normal speech Mood & Affect: euthymic mood Debridement Note Debridement Note Post-Debridement Measurements and Additional Note: Post-Debridement Measurements/Treatment WC - Nurse 1 - General Ulcer Assessment Start: 02/06/21 09:41 Freq: Status: Active Protocol: CONRAD Activity Type Activity Date Activity User E-Sign Co-Sign Detail Recorded Client Recorded Date Recorded By Document 02/06/21 09:41 KR [id number] 02/06/21 09:53 KR Document 02/13/21 08:22 KR [id number] 02/13/21 08:26 KR Document 02/20/21 08:24 KR [id number] 02/20/21 08:25 KR Document 02/20/21 08:27 KR [id number] 02/20/21 08:28 KR 02/06/21 02/13/21 02/20/21 09:41 08:22 08:24 WC - Today's Visit Information Type of service Initial Visit Follow-up Visit Follow-up Visit (Physician/ENERGY CONTROL OFFICER (Physician/ENERGY CONTROL OFFICER ) ) Arrival Mode Ambulatory Ambulatory Ambulatory Patient Identification Verified (Name & Yes Yes Yes ) Height and Weight Body Mass Index (BMI) 32.1 32.1 32.1 BMI Classification Obese Obese Obese Vital Signs Temperature (97.8 F-99.1 F) 97.3 F L 97.1 F L 97.3 F L Temperature Source Oral Temporal Temporal Pulse Rate (60-100) 74 73 75 Pulse Location Monitor Monitor Monitor Blood Pressure (90/60-120/80) 143/78 H 171/92 H 152/82 H Blood Pressure Mean 99 118 105 Source Monitor Monitor Monitor Position Semi-Fowlers Semi-Fowlers Semi-Fowlers Blood Pressure Location Left Arm Left Arm Left Arm History Since Last Visit- (Skip if this is Patient's initial visit) Have you changed medications since your No No No last visit? Any new allergies or adverse reactions No No No Had a fall/change in ADL's that may No No No increase risk of falls Signs or symptoms of abuse and/or No No No neglect since last visit Have you been in the hospital since your No No No last visit? Has dressing in place as prescribed No Yes Yes Has compression in place as prescribed N/A N/A N/A Has offloadiing in place as prescribed N/A N/A N/A Experienced any changes in pain level or No No No management Left Footwear Regular Shoe Regular Shoe Regular Shoe Right Footwear Regular Shoe Regular Shoe Regular Shoe Pain Scale: 0-10 Numeric Is Patient Pain Free? Yes Yes Yes 02/20/21 08:27 WC - Today's Visit Information Type of service Follow-up Visit (Physician/ENERGY CONTROL OFFICER ) Arrival Mode Ambulatory Patient Identification Verified (Name & Yes ) Height and Weight Body Mass Index (BMI) 32.1 BMI Classification Obese Vital Signs Temperature (97.8 F-99.1 F) 97.3 F L Temperature Source Temporal Pulse Rate (60-100) 75 Pulse Location Monitor Blood Pressure (90/60-120/80) 152/82 H Blood Pressure Mean 105 Source Monitor Position Semi-Fowlers Blood Pressure Location Left Arm History Since Last Visit- (Skip if this is Patient's initial visit) Have you changed medications since your No last visit? Any new allergies or adverse reactions No Had a fall/change in ADL's that may No increase risk of falls Signs or symptoms of abuse and/or No neglect since last visit Have you been in the hospital since your No last visit? Has dressing in place as prescribed Yes Has compression in place as prescribed N/A Has offloadiing in place as prescribed N/A Experienced any changes in pain level or No management Left Footwear Regular Shoe Right Footwear Regular Shoe Pain Scale: 0-10 Numeric Is Patient Pain Free? Yes WC - Nurse 1 - General Ulcer Measurement Start: 02/06/21 09:41 Freq: Status: Active Protocol: Activity Type Activity Date Activity User E-Sign Co-Sign Detail Recorded Client Recorded Date Recorded By Document 02/06/21 09:41 KR [id number] 02/06/21 09:53 KR Document 02/13/21 08:22 KR [id number] 02/13/21 08:26 KR Document 02/20/21 08:24 KR [id number] 02/20/21 08:25 KR Document 02/20/21 08:27 KR [id number] 02/20/21 08:28 KR 02/06/21 02/13/21 02/20/21 09:41 08:22 08:24 Wound Center Nurse 1 #1 Left Lower Quad -Current Size (cm) - Length 0.1 0.5 0.3 -Current Size (cm) - Width 0.8 0.2 0.2 -Current Size (cm) - Depth 1 0.4 -Total Square Cm 0.08 0.10 0.06 -Exudate Amt Small Small -Exudate Type Serosanguineous Serosanguineous -Wound Margin Distinct, Distinct, Outline Outline Attached Attached -Granulation Amt Small (1-33%) Small (1-33%) -Granulation Quality Red Red -Necrosis Amt None Present (0 Small (1-33%) %) -Necrotic Tissue Type Adherent Slough -Texture (Cara-wound Skin Appearance) Assessed, Assessed, Scarring Scarring -Moisture (Cara-wound Skin Appearance) No Abnormality, No Abnormality, Assessed Assessed -Color (Cara-wound Skin Appearance) No Abnormality, No Abnormality, Assessed Assessed -Temperature (Cara-wound Skin No Abnormality No Abnormality Appearance) (Pt Warm) (Pt Warm) -Tenderness on Palpation (Cara-wound No No Skin Appearance) -Ulcer Cleansing Rinsed/ Rinsed/ Irrigated with Irrigated with Saline Saline -Foul Odor after Cleansing No No -Anesthetic Used 4% Lidocaine 4% Lidocaine Solution Solution 02/20/21 08:27 Wound Center Nurse 1 #1 Left Lower Quad -Current Size (cm) - Length 0.3 -Current Size (cm) - Width 0.2 -Current Size (cm) - Depth 0.2 -Total Square Cm 0.06 -Exudate Amt Small -Exudate Type Serosanguineous -Wound Margin Distinct, Outline Attached -Granulation Amt Small (1-33%) -Granulation Quality Red -Necrosis Amt None Present (0 %) -Necrotic Tissue Type -Texture (Cara-wound Skin Appearance) Assessed, Scarring -Moisture (Caar-wound Skin Appearance) No Abnormality, Assessed -Color (Cara-wound Skin Appearance) No Abnormality, Assessed -Temperature (Cara-wound Skin No Abnormality Appearance) (Pt Warm) -Tenderness on Palpation (Cara-wound No Skin Appearance) -Ulcer Cleansing Rinsed/ Irrigated with Saline -Foul Odor after Cleansing No -Anesthetic Used WC - Nurse 2 - General Ulcer CM Notes Start: 02/06/21 09:41 Freq: Status: Active Protocol: Activity Type Activity Date Activity User E-Sign Co-Sign Detail Recorded Client Recorded Date Recorded By Document 02/06/21 12:39 PL [id number] 02/06/21 12:41 PL Edit Result 02/06/21 12:39 PL (1) [id number] 02/07/21 07:05 PL Document 02/13/21 10:07 PL [id number] 02/13/21 10:09 PL (1) #1 Left Lower Quad - Correct Patient Yes => - Correct Side, Site, Position Yes => - Correct Procedure Yes => - Procedure Performed Yes => - Type of Procedure Debridement => - Clinical Debridement Subcutaneous => - Tissue Removed Subcutaneous => - Area of Debridement (cm) - Length 0.1 => - Area of Debridement (cm) - Width 0.8 => - Total Square (Area) (cm) 0.08 => - Debridement - Subq, 1st 20sq cm Yes => 02/06/21 02/13/21 12:39 10:07 Wound Center Nurse 2 #1 Left Lower Quad -Time 10:30 08:33 -Correct Patient Yes -Correct Side, Site, Position Yes -Correct Procedure Yes -Procedure Performed Yes -Type of Procedure Debridement -Clinical Debridement Subcutaneous -Tissue Removed Subcutaneous -Post Debridement (cm) - Length 0.1 0.5 -Post Debridement (cm) - Width 0.8 0.2 -Post Debridement (cm) - Depth 3.0 0.8 -Total Square (Post) (cm) 0.08 0.10 -Area of Debridement (cm) - Length 0.5 -Area of Debridement (cm) - Width 0.2 -Total Square (Area) (cm) 0.10 -Tunneling No No -Undermining/Tunneling No No -Circular Undermining No No -Wound/Ulcer Outcome Not Healed Not Healed -Ulcer Cleansing Rinsed/ Rinsed/ Irrigated with Irrigated with Saline Saline -Foul Odor after Cleansing No No -Bioengineered Tissue No No -Debridement - Subq, 1st 20sq cm Yes Pain Scale: 0-10 Numeric Is Patient Pain Free? Yes Yes - Nurse 3 - General Ulcer D/C NN Start: 02/06/21 09:41 Freq: Status: Active Protocol: Activity Type Activity Date Activity User E-Sign Co-Sign Detail Recorded Client Recorded Date Recorded By Document 02/06/21 10:57 KALYN [id number] 02/06/21 10:58 KALYN 02/06/21 10:57 Wound Care Nurse 3 #1 Left Lower Quad -Primary Dressing Applied Nugauze, Plain Iodoform -Primary Dressing Covered/Secured with Dry Gauze, Secured with Tape -Nugauze, Plain Iodoform 1/4 1 Pain Scale: 0-10 Numeric Is Patient Pain Free? Yes - Visit Discharge Discharge Condition Stable Ambulatory Status Ambulatory Transportation Private Auto Wound debrided: Left lower abdominal quadrant Laterality: Left Type of Debridement: Excisional debridement Anesthesia Used: 5% Lidocaine Gel Depth: Down to and including healthy tissue and in the subcutaneous layer Percentage of wound debrided: 100 Instrument Used: 3mm curette Tissue Removed: Bioburden Severity: Fat Layer Exposed Amount of bleeding with debridement: Mild Bleeding Controlled with: Compression and gauze Patient tolerated procedure: Patient tolerated procedure well Assessment/Plan Assessment/Plan (1) Surgical wound, non healing: CODE(S): T81.89XA - Other complications of procedures, not elsewhere classified, initial encounter (2) MRSA (methicillin resistant staph aureus) culture positive: CODE(S): Z22.322 - Carrier or suspected carrier of Methicillin resistant Staphylococcus aureus (3) History of DVT (deep vein thrombosis): CODE(S): Z86.718 - Personal history of other venous thrombosis and embolism (4) Obesity (BMI 30.0-34.9): CODE(S): E66.9 - Obesity, unspecified (5) Abdominal wall abscess: CODE(S): L02.211 - Cutaneous abscess of abdominal wall (6) History of type 2 diabetes mellitus: CODE(S): Z86.39 - Personal history of other endocrine, nutritional and metabolic disease (7) Cellulitis and abscess of other specified site: CODE(S): L03.818 - Cellulitis of other sites; L02.818 - Cutaneous abscess of other sites (8) Acidosis, lactic: CODE(S): E87.2 - Acidosis (9) Type 2 diabetes mellitus with hyperglycemia: CODE(S): E11.65 - Type 2 diabetes mellitus with hyperglycemia PLAN: This is a 70-year-old female who presented with a recent left lower quadrant abdominal wall abscess associated with cellulitis. This was incised and drained, and she was treated for 3 days in the hospital setting, where she received intravenous antibiotics. She was subsequently discharged on clindamycin 600 mg p.o. 3 times daily for 7 days, which has been completed. The cellulitis has resolved. The abscess, which was drained in the emergency department on January 26, 2021, persists as a small cavity in the left lower abdominal wall. The patient is to continue packing the cavity on a daily basis using 1/4 inch Nu Gauze. Additional antibiotics do not appear to be warranted, as cellulitis has resolved. Patient is to return in 1 week for reassessment. We have implemented a MRSA decolonization protocol. Patient has been provided a prescription for chlorhexidine 4% for daily showers. Mupirocin 2% has also been prescribed for intranasal use, to be applied twice daily for 5 days, discontinued for a week, then repeated. Total time: 29 minutes.
== END 2021-02-21 23:59 ==
LOC: WC 08:15
PROVIDERS: PCP Family Medicine; Visit Provider Surgery
DX: T81.89XA Other complications of procedures, not elsewhere classified, initial encounter (principal); Z22.322 Carrier or suspected carrier of Methicillin resistant Staphylococcus aureus; E66.9 Obesity, unspecified; L02.211 Cutaneous abscess of abdominal wall; L03.818 Cellulitis of other sites; E87.2 Acidosis; E11.65 Type 2 diabetes mellitus with hyperglycemia; G47.30 Sleep apnea, unspecified; Z68.32 Body mass index [BMI] 32.0-32.9, adult; Z79.01 Long term (current) use of anticoagulants; Z86.39 Personal history of other endocrine, nutritional and metabolic disease; Z79.84 Long term (current) use of oral hypoglycemic drugs; Z86.718 Personal history of other venous thrombosis and embolism
CPT/HCPCS: 11042; 99213; G0463

== ENCOUNTER 2021-03-13 08:15 | Outpatient (RCR) | payer MEDICARE, SELFPAY ==
[2021-02-22 00:33] VITALS: BP 152/82; PULSE 75; TEMP 36.3
[2021-02-27 08:22] VITALS: BP 161/78; PULSE 77; RESP 16; TEMP 36.4; BMI 32.1
--- NOTE | 2021-02-27 08:46 | HP.PCM_ITS ---
History of Present Illness Date of Service: 02/27/21 Chief Complaint: Open surgical wound of the left lower quadrant abdominal wall History of Wound: This is a 70-year-old female who presented for evaluation and management relative to a surgical wound on the left lower quadrant of her abdomen. In early January,, the patient developed cellulitis and an abscess in the left lower quadrant of her abdomen. She presented to the emergency department on January 26, 2021, where an incision and drainage of an abscess was performed, and the patient was admitted for 3-day hospital stay. Cultures of the drained abscess were positive for MRSA. Patient was treated with Zosyn and vancomycin intravenously while in the hospital. She was subsequently discharged on clindamycin 600 mg p.o. 3 times daily for a total of 7 days. The prescription has just recently been completed. The margins of the cellulitis had been marked with indelible ink prior to the patient's presentation at our facility, and the erythema and cellulitis appears to be essentially totally abated at this time. The incised abscess and cavity persist. The patient has been packing the cavity with Nu Gauze on a daily basis. The patient has had prior episodes of MRSA infections, involving other areas on her abdominal wall, as well as her right hand. MRSA is also known to have been diagnosed in several of her grandchildren, as well as her sister. The patient was also diagnosed with acute deep vein thrombosis in the left lower extremity in July 2020, and remains on oral Xarelto at this time. [facility] Medical History (Updated 02/20/21 @ 08:[address] Devon Coppola MD) CPAP (continuous positive airway pressure) dependence Diabetes DVT (deep venous thrombosis) History of ductal carcinoma in situ (DCIS) of breast History of DVT (deep vein thrombosis) MRSA (methicillin resistant staph aureus) culture positive Non-smoker Sleep apnea Surgical wound, non healing Home Medications metformin 500 mg PO BID 03/02/19 [History Last Taken 01/26/21 18:00] anastrozole 1 mg PO DAILY 01/26/21 [History Last Taken 01/26/21 07:00] Xarelto 20 mg PO DAILY 01/27/21 [History Last Taken Unknown] clindamycin HCl 600 mg PO TID #42 cap 01/29/21 [Rx Last Taken Unknown] Allergy/AdvReac Type Severity Reaction Status Date / Time No Known Allergies Allergy Verified 01/26/21 20:23 Social History (Updated 01/26/21 @ 20:[address] Francisco Peng MD) household members: none Smoking Status: Never smoker alcohol intake: current alcohol intake frequency: holidays/special occasions only substance use type: does not use Vital Signs Vital Signs Vital Signs: 02/27/21 08:22 Temperature 97.5 F L Temperature Source Temporal Pulse Rate 77 Respiratory Rate 16 Blood Pressure 161/78 H Blood Pressure Mean 105 Blood Pressure Source Monitor Blood Pressure Position Sitting Blood Pressure Location Right Arm Oxygen Delivery Method Room Air Weight Body Mass Index (BMI) 32.1 Physical Exam Const alert, oriented x3, no apparent distress and well nourished General Appearance: cooperative, comfortable, well kempt and well developed Orientation / Consciousness: awake, oriented to person, oriented to place and oriented to time HEENT normocephalic Head and Scalp: normal to inspection, normocephalic and atraumatic External Ear: external ears normal Eyes PERRL and EOMs intact bilaterally Resp normal respiratory effort, normal air movement, no retractions and no use of accessory muscles Effort and Inspection: able to speak in complete sentences GI soft to palpation, non-tender and non-distended Palpation: soft Extremity no clubbing, cyanosis or edema and no calf tenderness General Extremity: Negative for clubbing or cyanosis Skin Wound Narrative: The wound in the left lower abdominal quadrant is much improved. It is much smaller in size. There is no sign of infection or cellulitis. Dimensions are documented elsewhere. There is a small amount of bioburden. Neuro oriented x3, CN's II-XII intact bilaterally and moves all extremities Sensorium / Orientation: awake, alert, oriented to person, oriented to place and oriented to time Speech: speech normal Psych mental status grossly normal Appearance: grossly normal and appropriate Activity / Motor Behavior: appropriate eye contact Speech: normal speech Mood & Affect: euthymic mood Debridement Note Debridement Note Post-Debridement Measurements and Additional Note: Post-Debridement Measurements/Treatment WC - Nurse 1 - General Ulcer Assessment Start: 02/27/21 08:22 Freq: Status: Active Protocol: CONRAD Activity Type Activity Date Activity User E-Sign Co-Sign Detail Recorded Client Recorded Date Recorded By Document 02/27/21 08:22 [id number] 02/27/21 08:27 MW 02/27/21 08:22 - Today's Visit Information Type of service 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-up Visit (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 ) Arrival Mode Ambulatory Transfer Assistance None Accompanied by self Patient Identification Verified (Name & Yes ) Patient Requires Transmission-Based No Precautions Safety Precautions NA Height and Weight Body Mass Index (BMI) 32.1 BMI Classification Obese Vital Signs Temperature (97.8 F-99.1 F) 97.5 F L Temperature Source Temporal Pulse Rate (60-100) 77 Pulse Location Monitor Respiratory Rate (12-18) 16 Respiratory rate source Observation Oxygen Delivery Method Room Air Blood Pressure (90/60-120/80) 161/78 H Blood Pressure Mean 105 Source Monitor Position Sitting Blood Pressure Location Right Arm History Since Last Visit- (Skip if this is Patient's initial visit) Have you changed medications since your No last visit? Any new allergies or adverse reactions No Had a fall/change in ADL's that may No increase risk of falls Signs or symptoms of abuse and/or No neglect since last visit Have you been in the hospital since your No last visit? Has dressing in place as prescribed Yes Has compression in place as prescribed N/A Has offloadiing in place as prescribed No Left Footwear Regular Shoe Right Footwear Regular Shoe Pain Scale: 0-10 Numeric Is Patient Pain Free? Yes - Nurse 1 - General Ulcer Measurement Start: 02/27/21 08:22 Freq: Status: Active Protocol: Activity Type Activity Date Activity User E-Sign Co-Sign Detail Recorded Client Recorded Date Recorded By Document 02/27/21 08:22 MW [id number] 02/27/21 08:27 MW 02/27/21 08:22 Wound Center Nurse 1 #1 Left Lower Quad -Combined with other wound No -Current Size (cm) - Length 0.3 -Current Size (cm) - Width 0.4 -Current Size (cm) - Depth 0.3 -Total Square Cm 0.12 -Photo Taken No -Epithelialization None Present -Tunneling No -Undermining/Tunneling No -Circular Undermining No -Exudate Amt Small -Exudate Type Serosanguineous -Wound Margin Distinct, Outline Attached -Granulation Amt Medium (34-66%) -Granulation Quality [place] -Slough/Fibrin Yes -Necrosis Amt Small (1-33%) -Necrotic Tissue Type Adherent Slough -Structure Exposed N/A -Texture (Cara-wound Skin Appearance) Assessed, Scarring -Moisture (Cara-wound Skin Appearance) No Abnormality, Assessed -Color (Cara-wound Skin Appearance) No Abnormality, Assessed -Temperature (Cara-wound Skin No Abnormality Appearance) (Pt Warm) -Tenderness on Palpation (Cara-wound Yes Skin Appearance) -Ulcer Cleansing Rinsed/ Irrigated with Saline -Foul Odor after Cleansing No -Anesthetic Used 4% Lidocaine Solution Lower Limb Edema Present No Wound debrided: Left lower abdominal quadrant Laterality: Left Type of Debridement: Excisional debridement Anesthesia Used: 5% Lidocaine Gel Depth: Down to and including healthy tissue and in the subcutaneous layer Percentage of wound debrided: 100 Instrument Used: 3mm curette Tissue Removed: Bioburden Severity: Fat Layer Exposed Amount of bleeding with debridement: Mild Bleeding Controlled with: Compression and gauze Patient tolerated procedure: Patient tolerated procedure well Assessment/Plan Assessment/Plan (1) Surgical wound, non healing: CODE(S): T81.89XA - Other complications of procedures, not elsewhere classified, initial encounter (2) MRSA (methicillin resistant staph aureus) culture positive: CODE(S): Z22.322 - Carrier or suspected carrier of Methicillin resistant Staphylococcus aureus (3) History of DVT (deep vein thrombosis): CODE(S): Z86.718 - Personal history of other venous thrombosis and embolism (4) Obesity (BMI 30.0-34.9): CODE(S): E66.9 - Obesity, unspecified (5) Abdominal wall abscess: CODE(S): L02.211 - Cutaneous abscess of abdominal wall (6) History of type 2 diabetes mellitus: CODE(S): Z86.39 - Personal history of other endocrine, nutritional and metabolic disease (7) Cellulitis and abscess of other specified site: CODE(S): L03.818 - Cellulitis of other sites; L02.818 - Cutaneous abscess of other sites PLAN: This is a 70-year-old female who presented with a recent left lower quadrant abdominal wall abscess associated with cellulitis. This was incised an d drained, and she was treated for 3 days in the hospital setting, where she received intravenous antibiotics. She was subsequently discharged on clindamycin 600 mg p.o. 3 times daily for 7 days, which has been completed. The cellulitis has resolved. The abscess, which was drained in the emergency department on January 26, 2021, persists as a small cavity in the left lower abdominal wall. We are to transition from the use of packing to the topical application of hydrogel on a daily basis, covered with gauze. Patient is to return in 2 weeks for reassessment, at which time it is anticipated that she may be healed. We have implemented a MRSA decolonization protocol. Patient has been provided a prescription for chlorhexidine 4% for daily showers. Mupirocin 2% has also been prescribed for intranasal use, to be applied twice daily for 5 days, discontinued for a week, then repeated. Total time: 28 minutes.
[2021-03-13 08:22] VITALS: BP 163/82; PULSE 75; RESP 20; TEMP 35.9; BMI 32.1
--- NOTE | 2021-03-13 09:15 | PCM.WC.HP ---
History of Present Illness Date of Service: 03/13/21 Chief Complaint: Open surgical wound of the left lower quadrant abdominal wall History of Wound: This is a 70-year-old female who presented for evaluation and management relative to a surgical wound on the left lower quadrant of her abdomen. In early January,, the patient developed cellulitis and an abscess in the left lower quadrant of her abdomen. She presented to the emergency department on January 26, 2021, where an incision and drainage of an abscess was performed, and the patient was admitted for 3-day hospital stay. Cultures of the drained abscess were positive for MRSA. Patient was treated with Zosyn and vancomycin intravenously while in the hospital. She was subsequently discharged on clindamycin 600 mg p.o. 3 times daily for a total of 7 days. The prescription has just recently been completed. The margins of the cellulitis had been marked with indelible ink prior to the patient's presentation at our facility, and the erythema and cellulitis appears to be essentially totally abated at this time. The incised abscess and cavity persist. The patient has been packing the cavity with Nu Gauze on a daily basis. The patient has had prior episodes of MRSA infections, involving other areas on her abdominal wall, as well as her right hand. MRSA is also known to have been diagnosed in several of her grandchildren, as well as her sister. The patient was also diagnosed with acute deep vein thrombosis in the left lower extremity in July 2020, and remains on oral Xarelto at this time. [facility] Medical History (Updated 03/13/21 @ 09:[address] Devon Coppola MD) CPAP (continuous positive airway pressure) dependence Diabetes DVT (deep venous thrombosis) History of ductal carcinoma in situ (DCIS) of breast History of DVT (deep vein thrombosis) MRSA (methicillin resistant staph aureus) culture positive Non-smoker Sleep apnea Surgical wound, non healing Home Medications metformin 500 mg PO BID 03/02/19 [History Last Taken 01/26/21 18:00] anastrozole 1 mg PO DAILY 01/26/21 [History Last Taken 01/26/21 07:00] Xarelto 20 mg PO DAILY 01/27/21 [History Last Taken Unknown] clindamycin HCl 600 mg PO TID #42 cap 01/29/21 [Rx Last Taken Unknown] Allergy/AdvReac Type Severity Reaction Status Date / Time No Known Allergies Allergy Verified 01/26/21 20:23 Social History (Updated 01/26/21 @ 20:[address] Francisco Peng MD) household members: none Smoking Status: Never smoker alcohol intake: current alcohol intake frequency: holidays/special occasions only substance use type: does not use Vital Signs Vital Signs Vital Signs: 03/13/21 08:22 Temperature 96.6 F L Temperature Source Temporal Pulse Rate 75 Respiratory Rate 20 H Blood Pressure 163/82 H Blood Pressure Mean 109 Blood Pressure Source Monitor Weight Body Mass Index (BMI) 32.1 Physical Exam Const alert, oriented x3, no apparent distress and well nourished General Appearance: cooperative, comfortable and well developed Orientation / Consciousness: awake, oriented to person, oriented to place and oriented to time HEENT normocephalic and head/scalp atraumatic Head and Scalp: normal to inspection, normocephalic and atraumatic External Ear: external ears normal Eyes PERRL and EOMs intact bilaterally General Eye: normal appearance of both eyes Resp normal respiratory effort, normal air movement, no retractions and no use of accessory muscles Effort and Inspection: able to speak in complete sentences GI Palpation: soft and tender Extremity no calf tenderness General Extremity: Negative for clubbing or cyanosis Skin Wound Narrative: The wound on the left lower abdominal wall is now completely healed and epithelialized. There is no erythema, redness, or any sign of infection. Neuro oriented x3, CN's II-XII intact bilaterally and moves all extremities Psych Appearance: grossly normal and appropriate Attitude: calm Activity / Motor Behavior: appropriate eye contact Speech: normal speech Mood & Affect: euthymic mood Thought Process: normal thought process Thought Content: normal thought content Attention / Concentration: attention grossly intact Debridement Note Debridement Note No debridement was completed: No debridement was completed today Assessment/Plan Assessment/Plan (1) Surgical wound, non healing: CODE(S): T81.89XA - Other complications of procedures, not elsewhere classified, initial encounter QUALIFIERS: Encounter type: subsequent encounter Qualified Code(s): T81.89XD - Other complications of procedures, not elsewhere classified, subsequent encounter (2) MRSA (methicillin resistant staph aureus) culture positive: CODE(S): Z22.322 - Carrier or suspected carrier of Methicillin resistant Staphylococcus aureus (3) History of DVT (deep vein thrombosis): CODE(S): Z86.718 - Personal history of other venous thrombosis and embolism (4) Obesity (BMI 30.0-34.9): CODE(S): E66.9 - Obesity, unspecified (5) Abdominal wall abscess: CODE(S): L02.211 - Cutaneous abscess of abdominal wall (6) History of type 2 diabetes mellitus: CODE(S): Z86.39 - Personal history of other endocrine, nutritional and metabolic disease (7) Cellulitis and abscess of other specified site: CODE(S): L03.818 - Cellulitis of other sites; L02.818 - Cutaneous abscess of other sites (8) Type 2 diabetes mellitus with hyperglycemia: CODE(S): E11.65 - Type 2 diabetes mellitus with hyperglycemia PLAN: This is a 70-year-old female who presented with a recent left lower quadrant abdominal wall abscess associated with cellulitis. This was incised and drained, and she was treated for 3 days in the hospital setting, where she received intravenous antibiotics. She was subsequently discharged on clindamycin 600 mg p.o. 3 times daily for 7 days, which has been completed. The cellulitis has resolved. The abscess, which was drained in the emergency department on January 26, 2021, is now completely and totally healed. The patient is to be discharged, and will follow-up henceforth on an as-needed basis. Total time: 26 minutes.
== END 2021-03-13 08:47 | disposition home or self-care (01) ==
LOC: WC 08:15
PROVIDERS: PCP Family Medicine; Visit Provider Surgery
DX: T81.89XD Other complications of procedures, not elsewhere classified, subsequent encounter (principal); Z22.322 Carrier or suspected carrier of Methicillin resistant Staphylococcus aureus; E66.9 Obesity, unspecified; E11.65 Type 2 diabetes mellitus with hyperglycemia; L02.211 Cutaneous abscess of abdominal wall; L03.818 Cellulitis of other sites; G47.30 Sleep apnea, unspecified; Z86.39 Personal history of other endocrine, nutritional and metabolic disease; Z86.718 Personal history of other venous thrombosis and embolism; Z79.01 Long term (current) use of anticoagulants; Z79.84 Long term (current) use of oral hypoglycemic drugs; Z68.32 Body mass index [BMI] 32.0-32.9, adult
CPT/HCPCS: 11042; 99213; G0463